=== PATIENT | female | born 1940 | race Hispanic/Latino ===

== ENCOUNTER 2016-11-21 20:26 | Inpatient (IN) | payer OTHER ==
[2016-11-21] MEDS ORDERED: LASIX IV ONE (21:54)
--- NOTE | 2016-11-21 21:55 | PROVIDER DOCUMENTATION ---
HPI-Abdominal Pain/GI Problem - General Source: family - History of Present Illness-ABD Nature of Presenting Problems: 76 y/o women presents to the ED with nausea and vomiting for 3 days. Pt speaks no Belarusian but son states she has been treated for Bronchitis and does not take her medicine. Abdominal Pain Onset Location: reports: generalized abdomen Pain Radiation: reports: no radiation Quality of Pain: reports: cramping Severity in ED: reports: mild Onset/Duration: reports: 3 days ago Timing: reports: still present Exposure to sick contacts?: Yes Associated Symptoms: reports: cough, nausea, vomiting. denies: fever/chills <Nayan Castro - Last Filed: 11/21/16 23:41> <Eduardo Callejas - Last Filed: 11/21/16 23:47> - General Chief Complaint: Nausea/Vomiting Stated Complaint: VOMITING Time Seen by Provider: 11/21/16 21:40 Allergies/Adverse Reactions: Patient Allergies Allergy/AdvReac Type Severity Reaction Status Date / Time No Known Allergies Allergy Verified 11/21/16 21:20 Home Medications: Home Medication List Medication Instructions Recorded Confirmed Last Taken Type Insulin Glargine [Lantus] 0 unit SUBQ QHS 08/27/13 11/21/16 05/21/15 21:00 History Hydrocodone Bit/Acetaminophen 1 each PO Q8H PRN PRN 05/22/15 11/21/16 05/22/15 09:00 History [Hydrocodon-Acetaminophen 5-325] Nebivolol HCl [Bystolic] 10 mg PO DAILY 05/22/15 11/21/16 11/21/16 History Oxymetazoline Nasal [place] [Afrin 2 spray SONAM PRN PRN #1 bottle 02/25/16 Unknown Rx Nasal [place]] Furosemide [Lasix] 20 mg PO DAILY 11/21/16 11/21/16 11/21/16 History Gabapentin [Neurontin] 100 mg PO TID PRN 11/21/16 11/21/16 Unknown History Potassium Chloride 10 meq PO DAILY 11/21/16 11/21/16 11/21/16 History Review of Systems - Adult - REVIEW OF SYSTEMS - ADULT ROS:: ROS per family Constitutional: denies: chills, fever Eyes: reports: no symptoms reported Ears, Nose, Mouth & Throat: reports: no symptoms reported Cardiovascular: denies: chest pain, edema Respiratory: reports: cough. denies: shortness of breath, wheezing Gastrointestinal: reports: abdominal pain, nausea, vomiting Genitourinary: reports: no symptoms reported Musculoskeletal: reports: no symptoms reported Integumentary: reports: no symptoms reported Neurological: reports: no symptoms reported Psychiatric: reports: no symptoms reported Endocrine: reports: no symptoms reported Hematologic/Lymphatic: reports: no symptoms reported Allergic/Immunologic: reports: no symptoms reported All Other Systems: Reviewed and Negative <Nayan Castro - Last Filed: 11/21/16 23:41> Past History - Adult - PAST MEDICAL HISTORY-ADULT Review of Records: reports: Old Records Reviewed, Nursing Assessment Review, Medications Reviewed Cardiovascular: reports: CAD (CABG), CHF, HTN, hyperlipidemia Respiratory: reports: COPD Endocrine/Immune: reports: Diabetes - PRIOR SURGERIES/PROCEDURES Surgical/Procedure History: reports: CABG, joint replacement (right knee replacement ), other (open heart sugery) - IMMUNIZATION STATUS Childhood Immunizations: See Nurse Assessment Flu Vaccine: See Nurse Assessment - SOCIAL HISTORY Smoking: non-smoker Substance Use: none/never Living Situation: family <Nayan Castro - Last Filed: 11/21/16 23:41> Physical Exam-General - PHYSICAL EXAM-ADULT Initial Vital Signs Reviewed: Yes - CONSTITUTIONAL General Appearance: appears well, alert, no apparent distress - EYES Eyes: PERRL/EOMI, pink conjunctivae - HEAD, EARS, NOSE, MOUTH & THROAT HENMT: moist mucous membranes, normal ENT inspection, TMs normal, pharynx normal - NECK Neck: non-tender, full range of motion, supple, normal inspection - RESPIRATORY Respiratory: lungs clear, normal breath sounds (clear laterally), no respiratory distress, no accessory muscle use - CARDIOVASCULAR Cardiovascular: normal peripheral pulses, regular rate, rhythm - GASTROINTESTINAL (ABDOMEN) Abdominal Exam: normal bowel sounds, soft, tenderness (generalized) - MUSCULOSKELETAL Back Exam: normal inspection, no CVA tenderness, no vertebral tenderness Extremity: non-tender, pedal edema (2+). negative: normal inspection (Rigth amptuee bleow knee), deformity - SKIN Integumentary: normal color, normal turgor, warm/dry - NEUROLOGIC Neurologic: grossly normal, no motor/sensory deficits - PSYCHIATRIC Psych/Mental Status: normal mood/affect, normal thought content, normal thought process, oriented x 3 <Nayan Castro - Last Filed: 11/21/16 23:41> Progress - PLAN OF CARE/RESULTS Progress/Plan/Lab Results: Orders Category Date Time Status Saline Loc DIRECTED Care 11/21/16 20:43 Active NPO Diet 11/21/16 20:43 Active flat [FLAT/UPRIGHT ABD/1 VIEW CHEST] [RAD] Stat Exams 11/21/16 20:44 Taken AMYLASE [CHEM] Stat Lab 11/21/16 22:06 Completed BNP [PRO B-NATRIURETIC PEPTIDE] Stat Lab 11/21/16 22:00 Received CBC WITH ELECTRONIC DIFF [HEME] Stat Lab 11/21/16 22:06 Completed COMPREHENSIVE METABOLIC PANEL [CHEM] Stat Lab 11/21/16 22:06 Completed LIPASE [CHEM] Stat Lab 11/21/16 22:06 Completed URINE CULTURE [RM] Routine Lab 11/21/16 23:26 Received Furosemide [Lasix] Med 11/21/16 21:54 Discontinued 40 mg IV NOW ONE Vital Signs Temp Pulse Resp BP Pulse Ox 11/21/16 23:33 58 L 16 164/79 96 11/21/16 20:39 97.8 F 63 16 185/74 95 No Known Allergies Allergy (Verified 11/21/16 21:20) Insulin Glargine [Lantus] 0 unit SUBQ QHS 08/27/13 Hydrocodone Bit/Acetaminophen [Hydrocodon-Acetaminophen 5-325] 1 each PO Q8H PRN PRN 05/22/15 Nebivolol HCl [Bystolic] 10 mg PO DAILY 05/22/15 Oxymetazoline Nasal [place] [Afrin Nasal [place]] 2 spray SONAM PRN PRN #1 bottle Furosemide [Lasix] 20 mg PO DAILY 11/21/16 Gabapentin [Neurontin] 100 mg PO TID PRN 11/21/16 Potassium Chloride 10 meq PO DAILY 11/21/16 Dietary Diet NPO Start SatNov 21 2042 I&O 11/20/16 11/21/16 11/22/16 06:59 06:59 06:59 Output Total 50 Balance -50 Laboratory 11/21/16 11/21/16 11/21/16 22:45 22:06 22:06 WBC 4.96 RBC 5.83 H Hgb 17.3 H Hct 54.1 H MCV 92.8 MCH 29.7 MCHC 32.0 L RDW Std Deviation 18.7 H Plt Count 138 MPV 12.3 H Immature Gran % (Auto) 0.4 Neut % (Auto) 59.3 Lymph % (Auto) 23.6 [place] % (Auto) 12.5 H Eos % (Auto) 2.0 Baso % (Auto) 2.2 H Immature Gran # (Auto) 0.02 Neut # (Auto) 2.94 Lymph # (Auto) 1.17 L [place] # (Auto) 0.62 H Eos # (Auto) 0.10 Baso # (Auto) 0.11 Sodium 139 Potassium 5.9 H Chloride 105 Carbon Dioxide 18 L Anion Gap 16 BUN 55 H Creatinine 2.4 H Estimated GFR/1.73 m2 20 BUN/Creatinine Ratio 23 Glucose 174 H Calculated Osmolality 297 Calcium 9.1 Total Bilirubin 1.17 H AST 28 ALT 12 Alkaline Phosphatase 116 H Total Protein 6.8 Albumin 2.8 L Globulin 4.0 Albumin/Globulin Ratio 0.7 Amylase 73 Lipase 42 Urine Source CLEAN CATCH Urine Color YELLOW Urine Clarity CLEAR Urine Turbidity Cancelled Urine pH 5.5 Ur Specific [place] > 1.030 Urine Protein >=300 A Ur Glucose (Stick) Cancelled Urine Ketones NEGATIVE Ur Ketones (Stick) Cancelled Urine Blood LARGE A Urine Nitrite NEGATIVE Urine Bilirubin NEGATIVE Urine Urobilinogen 1.0 Urobilinogen Dipstick Cancelled Urine Leukocytes Cancelled Urine WBC (Auto) Cancelled Urine RBC (Auto) Cancelled U Epithel Cells (Auto) Cancelled Urine Bacteria (Auto) Cancelled Urine Microscopic RBC TNTC A Urine WBC NEGATIVE Urine Microscopic WBC TNTC A Ur Epithelial Cells <10 Urine Bacteria 3+ Urine Glucose 100 A - XRAY 1 XRAY Study: Chest, Abdomen Impression: Abnormal XRAY Interpretation: CHF and cardiomegal per Dr Callejas - CONSULTS/PCP/HOSPITALIST Notification #1 *Consult/PCP/Hospitalist*: Dr Montero (Hospitalist) Time Discussed: 23:41 Reason/Comments: Admission Consult Disposition: Will see in ED (accepts) <Nayan Castro - Last Filed: 11/21/16 23:41> Departure <Nayan Castro - Last Filed: 11/21/16 23:41> - Departure Time of Disposition Order: 23:45 Certified Medical Emergency: Emergent <Eduardo Callejas - Last Filed: 11/21/16 23:47> - Departure DIAGNOSIS: Congestive heart failure Diabetes Qualifiers: Diabetes mellitus type: type 2 Diabetes mellitus complication status: with kidney complications Disposition: ADMITTED INPATIENT 09 Condition: Fair Physician Attestation
[2016-11-21 22:17] LABS: MANUAL DIFF NEEDED? NO
[2016-11-21 22:23] LABS: BASO% 2.2 % (0.0-0.8); HEMATOCRIT 54.1 % (37.0-47.0); HEMOGLOBIN 17.3 g/dL (12.0-16.0); IMM GRAN# 0.02 X1000 (0.0-0.04); IMM GRAN% 0.4 % (0.0-0.5); LYMPH# 1.17 X1000 (1.2-3.4); LYMPH% 23.6 % (20.5-51.1); MCH 29.7 PG (27-31); MCV 92.8 FL (81-99); MONO# 0.62 X1000 (0.11-0.59); MONO% 12.5 % (1.7-9.3); MPV 12.3 FL (7.4-10.4); NEUT% 59.3 % (42.2-75.2); PLT 138 X1000 (130-400); RBC 5.83 XMIL (4.2-5.4)
[2016-11-21 22:52] LABS: ALBUMIN 2.8 g/dL (3.5-5.0); CALCIUM 9.1 mg/dL (8.8-10.2); POTASSIUM 5.9 mmol/L (3.5-5.1); TOTAL BILIRUBIN 1.17 mg/dL (0.20-1.00); TOTAL PROTEIN 6.8 g/dL (6.3-8.3)
[2016-11-21 23:10] LABS: URINE SOURCE CLEAN CATCH
[2016-11-21 23:14] LABS: URINE EPITHELIAL CELLS <10 /HPF (<10); URINE RBC TNTC /HPF (<10); URINE WBC TNTC /HPF (<10)
[2016-11-21 23:26] LABS: BILIRUBIN URINE NEGATIVE (NEGATIVE); BLOOD URINE LARGE (NEGATIVE); CLARITY CLEAR (CLEAR); COLOR YELLOW; GLUCOSE URINE 100 mg/dL (NEGATIVE); LEUKOCYTES URINE NEGATIVE (NEGATIVE); NITRITE URINE NEGATIVE (NEGATIVE); PH URINE 5.5; PROTEIN URINE >=300 mg/dL (NEGATIVE); SP GRAVITY URINE > 1.030; URINE CULTURE NEEDED? YES
[2016-11-22] MEDS ORDERED: LASIX IV SCH (01:08)
[2016-11-22] MEDS ORDERED: TYLENOL PO PRN (01:08)
[2016-11-22] MEDS ORDERED: HUMALOG SUBQ ONE (01:08)
[2016-11-22] MEDS ORDERED: NEURONTIN PO PRN (01:08)
[2016-11-22] MEDS ORDERED: ZOFRAN IV PRN (01:08)
[2016-11-22] MEDS ORDERED: NORCO-5 PO PRN (01:08)
[2016-11-22] MEDS: ROCEPHIN 1 GM/NS 50 ML IV SCH (02:04)
[2016-11-22] MEDS: LOVENOX SUBQ SCH (06:26)
[2016-11-22 07:15] LABS: HDL 28 mg/dL (45-65); LDL 159 mg/dL; TRIGLYCERIDES 93 mg/dL (35-135); VLDL 19 mg/dL
[2016-11-22 07:16] LABS: HEMOGLOBIN A1C 7.3 % (4.8-6.0)
--- NOTE | 2016-11-22 07:18 | HISTORY AND PHYSICAL ---
PRIMARY CARE PHYSICIAN: Anders Perez MD REASON FOR ADMISSION: Shortness of breath for 3 days. HISTORY OF PRESENT ILLNESS: Ms. Roma Alvarez is a 75-year-old lady with past medical history of congestive systolic heart failure ejection fraction of 25% to 30%. Last 1 done in May of last year. She also has a past medical history of type 2 diabetes, diabetic neuropathy, hypertension. She reports that 3 weeks ago, she saw her family, Dr. Perez, with what was described as bronchitis and given some cough medication. She has had a persistent cough which has been dry. She admits to having over the last 1 week, a left lower extremity swelling but no orthopnea and PND. She states that she also denies any chest pain, or any anginal-type symptoms. She came in today primarily because her cough was getting worse and her exercise tolerance had diminished significantly over the last 2 days. No fever, no chills. She does have occasional pleuritic abdominal and chest pains with a declining urinary output and no GI complaints. No palpitations or lightheadedness. REVIEW OF SYSTEMS: No polyuria or polydipsia. No additional complaints. Twelve system review is negative. Positive findings per HPI. ALLERGIES: None. HOME MEDICATIONS: Lantus, dose to be determined; [place] 1 tablet 7.5 q.8 hours; Bystolic 10 mg daily; Neurontin 100 mg daily; Lasix 20 mg daily; potassium 10 mEq daily; Afrin nasal spray 2 puffs p.r.n. She was given some cough medication but this was not on her list. PAST SURGICAL HISTORY: Surgical repair to her heart. 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 PAST MEDICAL HISTORY INCLUDES: Coronary artery disease and the other history stated as above. SOCIAL HISTORY: Does not smoke, drink, or use drugs. Lives with her daughter. FAMILY HISTORY: Notable for type 2 diabetes. No heart disease. No cancer. LABORATORY WORK/DIAGNOSTIC DATA: EKG is pending. Chest x-ray showed increased vascular markings bilaterally. White count 4000, hemoglobin 17 and hematocrit 54, platelets 138,000, with a normal differential. Her potassium 5.9, bicarbonate 18, anion gap 16, BUN 55, creatinine 2.4. Her baseline usually runs about that. Glucose 174, proBNP greater than 35,000, albumin 2.5. Urinalysis shows greater than 300 protein, large blood, too numerous to count RBCs, no numerous to count WBCs, 2+ bacteria. PHYSICAL EXAMINATION: GENERAL: Pleasant, elderly, woman who speaks very little Bengali. Most of the history obtained from her daughter at bedside. She is alert and oriented to person, place, and time with normal mood and affect. VITAL SIGNS: Blood pressure is 164/79, pulse rate 60, respirations is 16, temperature is 97.8 degrees. 96% on room air. HEENT: Head is normocephalic, atraumatic. Eyes, PERRL, EOMI. Sclerae anicteric and not pale. ENT and oropharynx is grossly normal. No central cyanosis. NECK: Shows notable JVD with positive hepatojugular reflux. No bruit or thyromegaly visualized. CHEST: Few bibasilar crepitations in the bases with minimal decreased air entry in both lung beck. No wheezes. CARDIOVASCULAR: No first or second sounds heard. No gallops, murmurs or rubs. Rhythm is regular. ABDOMEN: Full, soft, with mild epigastric tenderness. No mass or organomegaly. Bowel sounds normal. RECTAL: Deferred at this time. EXTREMITIES: The patient has 1 to 2+ pitting edema on the left leg up to the knee. 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 Pulses distally in the left lower extremity are palpable. The volume is somewhat small, however. No clubbing or peripheral cyanosis otherwise. NEUROLOGIC: No focal deficits. SKIN: Intact with no breakdown lesions or erythema. MUSCULAR: Exam is grossly normal. ASSESSMENT: 1. Acute systolic heart failure exacerbation. 2. Hypertension with chronic heart disease. 3. Chronic kidney disease, stage 3. 4. Urinary tract infection. 5. Diabetic nephropathy. 6. Coronary artery disease. 7. Aortic regurgitation. 8. Hyperkalemia secondary to chronic kidney disease, cannot rule out type 4 renal tubular acidosis. PLAN: At this time, we will start the patient on diuretics. We will start the patient on a very low-dose ARB for patient's nephrotic range proteinuria and CHF and monitor her creatinine to ensure that it does not worsen. Start patient on breathing treatments. Also, I will monitor the patient's output and input. Daily BMP and may consider repeating another echo to document further stability or progress or deterioration of patient's cardiac status. was started for 3 days for urinary tract infection. Cultures need to be followed. Chest film also needs to be followed to document objective improvement of patient's CHF. Other measures include DVT prophylaxis with Lovenox. I recommend following up with A1c and lipid panel and consider starting statin and aspirin in view of the patient's history of CAD. MTDD
--- NOTE | 2016-11-22 07:49 | Diag Imaging Result Document ---
PROCEDURE NAME: FLAT/UPRIGHT ABD/1 VIEW CHEST - 11/21/2016 FLAT AND UPRIGHT ABDOMEN: FINDINGS: There is stool present throughout the colon including the rectum. The small bowel and stomach are not distended. There is no evidence of organomegaly or mass. IMPRESSION: Constipation. AP CHEST: FINDINGS: There is cardiomegaly and there has been previous sternotomy. There is a right pleural effusion which was not present on 06/12/2016, and there is mild interstitial pulmonary edema present particularly over the right lower lobe. IMPRESSION: Right pleural effusion and pulmonary edema.
[2016-11-22] MEDS: DUONEB (A & A) INH SCH ×3 (08:53→21:10)
[2016-11-22] MEDS ORDERED: KLOR-CON PO SCH (09:00)
[2016-11-22] MEDS: COZAAR PO SCH (11:32)
[2016-11-22] MEDS: BYSTOLIC PO SCH (11:32)
[2016-11-22] MEDS: OCUFLOX 0.3% OPH SOLUTION BOTH EYES SCH ×3 (14:22→21:46)
[2016-11-22] MEDS ORDERED: D50W SYRINGE ONE (16:46)
[2016-11-22] MEDS ORDERED: D50W SYRINGE IV ONE (16:58)
[2016-11-22] MEDS ORDERED: D5 NS 1,000 ML IV SCH (17:00)
[2016-11-23] MEDS: OCUFLOX 0.3% OPH SOLUTION BOTH EYES SCH ×6 (01:59→20:18)
[2016-11-23] MEDS: ROCEPHIN 1 GM/NS 50 ML IV SCH (02:00)
[2016-11-23] MEDS: LOVENOX SUBQ SCH (05:50)
[2016-11-23 06:31] LABS: MANUAL DIFF NEEDED? NO
[2016-11-23 06:48] LABS: BASO% 0.4 % (0.0-0.8); EOS# 0.25 X1000 (0.0-0.7); EOS% 4.4 % (0.0-10.0); HEMATOCRIT 48.1 % (37.0-47.0); HEMOGLOBIN 15.3 g/dL (12.0-16.0); LYMPH# 1.01 X1000 (1.2-3.4); LYMPH% 17.9 % (20.5-51.1); MCH 29.7 PG (27-31); MCHC 31.8 g/dL (33-37); MCV 93.4 FL (81-99); MONO# 0.74 X1000 (0.11-0.59); MONO% 13.1 % (1.7-9.3); MPV 12.2 FL (7.4-10.4); NEUT% 64.2 % (42.2-75.2); PLT 143 X1000 (130-400); RBC 5.15 XMIL (4.2-5.4)
[2016-11-23 06:57] LABS: CALCIUM 8.4 mg/dL (8.8-10.2); POTASSIUM 5.2 mmol/L (3.5-5.1)
[2016-11-23] MEDS: DUONEB (A & A) INH SCH ×3 (08:09→19:04)
--- NOTE | 2016-11-23 08:33 | Diag Imaging Result Document ---
PROCEDURE NAME: CHEST-2 VIEWS - 11/22/2016 SEATED AP AND LATERAL RADIOGRAPH OF THE CHEST: COMPARISON: 11/21/2016. FINDINGS: Lung volumes are very low. Interstitial edema appears to have worsened, and there is worsening pulmonary venous congestion. There is suggestion of at least a right pleural effusion that is probably larger than the previous study. There is probably an effusion on the left as well. Cardiac silhouette is stable. IMPRESSION: Worsening infiltrates bilaterally most compatible with pulmonary edema plus or minus pneumonia.
[2016-11-23] MEDS ORDERED: LASIX IV SCH (09:00)
--- NOTE | 2016-11-23 09:19 | EKG Report ---
Test Performed on : 11/23/2016 08:04:45 AM Test Reason : bradycardia Blood Pressure : / mmHG Vent. Rate : 061 BPM Atrial Rate : 061 BPM P-R Int : 178 ms QRS Dur : 110 ms QT Int : 462 ms P-R-T Axes : 023 -40 -09 degrees QTc Int : 465 ms Normal sinus rhythm. Left axis deviation Incomplete right bundle branch block Inferior infarct , age undetermined Cannot rule out Anterior infarct (cited on or before 30-APR-2015) T wave abnormality, consider lateral ischemia Abnormal ECG When compared with ECG of 22-MAY-2015 17:34, T wave inversion more evident in Lateral leads Confirmed by River Pittman MD ([id number]) on 11/23/2016 9:05:05 PM
--- NOTE | 2016-11-23 11:25 | CONSULTATION ---
DATE OF CONSULTATION: 11/23/2016 Ms. Alvarez is a lady. History was obtained from the chart. Dr. Benton helped to translate. She has been having some lower leg pain and also had some cough which has been dry. She denies chest pain. She came to the emergency room as she was feeling weak with a left lower extremity swelling but without any orthopnea or paroxysmal nocturnal dyspnea. REVIEW OF SYSTEMS: GI System: There is no hematemesis or melena. Central nervous system: No focal weakness to suggest a CVA or TIA. Genitourinary System: There is no dysuria or hematuria. PAST MEDICAL HISTORY: 1. Coronary artery disease, status post coronary artery bypass grafting, 2009, SOLIS to left anterior descending artery, SVG to diagonal, SVG to OM, SVG to posterolateral branches. 2. Congestive heart failure. Last V/Q scan 03/21/2015 no pulmonary embolism. 3. Systolic heart failure. 4. History of pleural effusion in the past. Drained 1 L in 03/12/2010. 5. COPD. 6. Hypertension. 7. Diabetes. 8. Carotid disease. HOME MEDICATIONS: Include Lantus, [place], Bystolic 10, Neurontin 100, Lasix 20, potassium supplements, Afrin spray. She has been started on ceftriaxone and Lasix IV in the hospital. ALLERGIES: She is not known to be allergic to any medications. She does not smoke. Blood pressure 170/66. CARDIOVASCULAR SYSTEM: Normal jugular venous pressure. First and second heart sounds were heard. There was soft systolic murmur. Respiratory System: Bibasilar scattered inspiratory crepitations. Abdomen: Soft, nontender. Extremities: Examination of extremities: Pedal edema. Chest x-ray revealed bilateral infiltrates compatible with pulmonary edema. OTHER LABORATORY EXAMINATION: Revealed hemoglobin 15.3, hematocrit 48, platelet count of 143,000. Sodium 141, potassium 5.2, BUN 59, creatinine 2.6. Troponin 0.10, proBNP greater than 35,000. ASSESSMENT AND PLAN: Ms. Roma Alvarez is a 76-year-old lady with history of coronary artery disease, status post coronary artery bypass grafting, systolic heart failure, history of pleural effusion in the past, hypertension, diabetes is admitted with atypical symptoms. Denies chest pain. She has noticed swelling in the lower extremities and pain and she is in heart failure. She has been started on Lasix. Would recommend continuing Lasix. We will get an echocardiogram to assess cardiac and valvular function. She had left ventricular systolic function of 25% in the past. She has renal insufficiency. Will also consult Nephrology to help with her renal function issues as with diuresis renal function may worsen Once euvolemic will assess for ischemia. She also has been started on ceftriaxone as she had some cough however white counts were normal. Would recommend continuing the medications. Thank you for the consult. JESSEE
[2016-11-23] MEDS: BYSTOLIC PO SCH (11:44)
[2016-11-23] MEDS: COZAAR PO SCH (11:44)
--- NOTE | 2016-11-23 13:26 | CONSULTATION ---
DATE OF CONSULTATION: 11/23/2016 REASON FOR CONSULTATION: Chronic kidney disease. HISTORY OF PRESENT ILLNESS: Ms. Alvarez is a 76-year-old woman with coronary artery disease, peripheral vascular disease, hypertension, diabetes, history of DKA, chronic kidney disease. Baseline creatinine has been approximately 2 to 2.5 in the old record. She was admitted to the hospital with shortness of breath and has been treated for symptomatic heart failure. She has had some improvement in her symptoms but they do persist. In this context, she was evaluated by Cardiology who asked us to participate in her care. PAST MEDICAL HISTORY: 1. Diabetes. 2. Hypertension. 3. Coronary disease. 4. Peripheral vascular disease. 5. Chronic kidney disease. Baseline creatinine 2-2.5. 6. Peripheral neuropathy. HOME MEDICATIONS: Insulin, hydrocodone, nebivolol, Afrin, potassium chloride, gabapentin, furosemide. ALLERGIES: None. SOCIAL HISTORY: She does not speak Moldovan. No alcohol or tobacco. She lives with her daughter. FAMILY HISTORY: Positive for diabetes. PHYSICAL EXAMINATION: Vital Signs: Blood pressure 161/71, heart rate 64, respirations 20, afebrile. General: She is an elderly woman, lying at 30 degrees in no distress. Skin: Warm and dry. HEENT: Conjunctivae are pink. Pupils are equal. Oropharynx is clear. Tongue is moist. Neck: Supple. Trachea is midline. Jugular venous distention is present. Heart: PMI is displaced. Regular rate and rhythm with a gallop and a murmur. Lungs: Have equal breath sounds. No crackles or wheezes. Abdomen: Soft, nontender. Bowel sounds are present. No organomegaly. Extremities: Have 2+ edema. No clubbing or cyanosis. Right BKA. LABORATORY DATA: Sodium 141, potassium 5.2, chloride 104, bicarbonate 25, BUN 59, creatinine 2.6. IMPRESSION: Chronic kidney disease stage 3B to 4. This is not significantly different from her baseline. I have reviewed her current medications and no changes are required regarding the kidney function. We will quantify her kidney function with a 24 hour urine collection and have her undergo a kidney ultrasound. Thank you for the consult.
--- NOTE | 2016-11-23 15:54 | PROGRESS NOTE ---
DATE: 11/23/2016 SUBJECTIVE: This patient states that she is feeling better. She is not complaining of chest pain or shortness of breath, she is not complaining of burning sensation with the urine, she basically came in complaining with nausea and vomiting apparently related with some medication that she was taking at home for pain. Cardiology and Nephrology Department have evaluated this patient; we will follow their recommendations. OBJECTIVE: Vital Signs: Temperature 98.0 degrees, pulse 64, respiratory rate 20, blood pressure 161/71, oxygen saturation 100% on 2 L of nasal cannula. HEENT: Head normocephalic. No trauma. PERRLA. Neck: Supple. Mild JVD. No masses. Central trachea. Chest: Bilateral rales at the bases. Cardiovascular: RRR. No murmurs. No gallops. No rubs. Abdomen: Soft. Mild tenderness to palpation in the epigastric area. Nondistended. Obese. Extremities: This patient has a right BKA stump which is clean, and she has 1 pitting edema on the left lower extremity. Neurological examination: No focal deficits. LABORATORY: WBC 5.6, hemoglobin 15.3, hematocrit 48.1, platelets 143. Sodium 141, potassium 5.2, chloride 104, bicarbonate 25, BUN 59, creatinine 2.6, glucose 155, calcium 8.4. ASSESSMENT AND PLAN: 1. Nausea and vomiting, this is getting better. This patient is not complaining at this moment of nausea and vomiting. She is tolerating oral. 2. Acute systolic heart failure exacerbation. Cardiology Department is on board. This patient has been placed on Lasix twice a day intravenous, we will continue to monitor the urine output and kidney function. 3. Chronic kidney disease, stage III. The creatinine is around her baseline. We will continue to monitor. Nephrology Department is on board. 4. Urinary tract infection. We have a positive culture that showed gram positive cocci. I will wait for final results. This patient is not complaining of any urinary symptoms. 5. Diabetic nephropathy. This is chronic and stable. Nephrology Department is on board. 6. History of coronary artery disease. Aware. 7. Aortic regurgitation, aware. 8. Hyperkalemia likely secondary to chronic kidney disease. The potassium is a little bit better. We will continue to monitor. Probably with the furosemide, the potassium is going to decrease.
--- NOTE | 2016-11-23 16:38 | ECHO REPORT ---
ORDER DATE: 11/23/2016 INTERPRETING PHYSICIAN: Dr. Sanchez CLINICAL INDICATIONS: [id number]-old female, renal failure, hypertension , heart disease. M-MODE MEASUREMENTS: Right ventricle: 4.2 cm. Left ventricle end diastole: 5.5 cm. Left ventricle end systole: 4.4 cm. Posterior wall: 1.1 cm. Interventricular septum: 1.1 cm. Left atrium: 4.4 cm. Aortic root: 3.0 cm. SUMMARY OF 2-DIMENSIONAL IMAGING: Left ventricular chamber is moderately dilated. The left ventricular systolic function appears to be moderately impaired. Global ejection fraction is estimated at 40 to 45%. There is a mild degree of concentric left ventricular hypertrophy. The left atrium is significantly enlarged. The right ventricle is also significantly dilated. Right atrium is markedly dilated. The aortic valve shows a sclerosis of the cusp. Color flow mapping indicates mild degree of aortic regurgitation. There is no stenosis. Mitral anulus shows moderate calcification. Color flow mapping shows mild degree of regurgitation. Pulse wave Doppler of mitral inflow shows a pseudo-normal pattern with a tall E wave, short A wave. Tissue Doppler of septal and lateral mitral anulus averages 2 cm. There is impaired left ventricular relaxation with elevation of left atrial pressure. The pulmonic valve shows mild to moderate degree of regurgitation. Tricuspid valve shows moderate degree of regurgitation. Inferior vena cava is enlarged. Pulmonary pressure estimated at 69 mmHg. There is no pericardial effusion, masses, nor thrombus. SUMMARY: This study shows: 1. Moderately enlarged left ventricle with moderately impaired function, ejection fraction 40 to 45%, with some wall motion abnormality at the level of the posterolateral wall of the left ventricle. 2. Mild degree of mitral regurgitation. 3. Moderate degree of tricuspid regurgitation with a pulmonary pressure of 69 mmHg. There is diastolic dysfunction with elevated left atrial pressure. Clinical correlation recommended. [facility]
--- NOTE | 2016-11-23 18:41 | Diag Imaging Result Document ---
PROCEDURE NAME: US RENAL 2 (RETROPER) COMPLETE - 11/23/2016 RENAL ULTRASOUND: FINDINGS: There is no evidence of hydronephrosis. The right kidney is 9.4 x 3.2 x 3 cm the left is 10.1 x 3.8 x 4.4 cm. Both kidneys are somewhat atrophic in appearance with increased echogenicity which may indicate medical renal disease. There is some lobulation as well. This appearance was also present on 03/22/2015 although the left kidney appears somewhat smaller than it did previously. IMPRESSION: Probable medical renal disease. No evidence of obstructive uropathy.
[2016-11-23] MEDS: LASIX IV SCH (20:18)
[2016-11-24] MEDS: ROCEPHIN 1 GM/NS 50 ML IV SCH (00:43)
[2016-11-24] MEDS: OCUFLOX 0.3% OPH SOLUTION BOTH EYES SCH ×6 (00:43→21:50)
[2016-11-24 02:01] LABS: URINE MICRO REVIEW NEEDED? NO; URINE SOURCE CATH
[2016-11-24 02:06] LABS: BILIRUBIN URINE NEGATIVE (NEGATIVE); BLOOD URINE MODERATE (NEGATIVE); COLOR YELLOW; GLUCOSE URINE 150 mg/dL (NEGATIVE); LEUKOCYTES URINE LARGE (NEGATIVE); NITRITE URINE NEGATIVE (NEGATIVE); PH URINE 5.5; PROTEIN URINE 100 mg/dL (NEGATIVE); SP GRAVITY URINE 1.008; TURBIDITY URINE HAZY (CLEAR); UROBILINOGEN URINE NORMAL (NORMAL)
[2016-11-24 02:07] LABS: UR EPITHELIAL CELLS <10 /HPF (<10); URINE BACTERIA 1+ /HPF; URINE CULTURE NEEDED? YES; URINE WBC TNTC /HPF (<10)
[2016-11-24] MEDS: LOVENOX SUBQ SCH (06:18)
[2016-11-24 06:51] LABS: MANUAL DIFF NEEDED? NO
[2016-11-24 07:13] LABS: BASO% 0.5 % (0.0-0.8); EOS# 0.31 X1000 (0.0-0.7); EOS% 4.7 % (0.0-10.0); HEMATOCRIT 45.5 % (37.0-47.0); HEMOGLOBIN 14.5 g/dL (12.0-16.0); LYMPH# 1.26 X1000 (1.2-3.4); LYMPH% 19.2 % (20.5-51.1); MCH 29.7 PG (27-31); MCHC 31.9 g/dL (33-37); MCV 93.2 FL (81-99); MONO# 0.67 X1000 (0.11-0.59); MONO% 10.2 % (1.7-9.3); MPV 12.1 FL (7.4-10.4); NEUT% 65.4 % (42.2-75.2); PLT 141 X1000 (130-400); RBC 4.88 XMIL (4.2-5.4)
[2016-11-24 07:35] LABS: CALCIUM 8.2 mg/dL (8.8-10.2); POTASSIUM 4.5 mmol/L (3.5-5.1)
[2016-11-24] MEDS: DUONEB (A & A) INH SCH ×3 (07:42→19:16)
[2016-11-24] MEDS: BYSTOLIC PO SCH (09:28)
[2016-11-24] MEDS: COZAAR PO SCH (09:28)
[2016-11-24] MEDS: LASIX IV SCH ×2 (09:28→22:50)
--- NOTE | 2016-11-24 13:18 | PROGRESS NOTE ---
DATE: 11/24/2016 SUBJECTIVE: Ms. Alvarez has no complaints of pain and breathing seems to be doing well. Communication is somewhat limited secondary to her non Pakistani-speaking status. PHYSICAL EXAMINATION: She is afebrile. Heart rate 70s to 80s. Blood pressure 178/85. Her I's and O's are somewhat difficult to estimate secondary to a number of incontinent voids noted. General: She is in no acute distress. Cardiovascular: She is in a regular rate and rhythm. She has no obvious murmurs. Extremities: She does have 1+ lower extremity edema in the left lower extremity. She has a right- sided BKA. Her JVP does appear to be significantly elevated. Chest: Clear bilaterally. No increased work of breathing. Abdomen: Soft, nontender, nondistended. No obvious organomegaly. PERTINENT DATA: White count 6.5, hematocrit is 45.5, platelet count 141,000. Sodium 139, potassium 4.5. BUN 57, creatinine 2.8 and that is up from 55 and 2.4 on admission. Her GFR was 20 on presentation at 16 presently. ASSESSMENT: 1. Acute systolic heart failure. 2. Renal insufficiency. PLAN: I will add in hydralazine 25 t.i.d. If her pressure tolerates this we will likely add in ISDN. The primary team initiated the patient on losartan at presentation. If her renal function continues to worsen we will likely need to discontinue this medication. Nephrology is currently following.
--- NOTE | 2016-11-24 14:27 | PROGRESS NOTE ---
DATE: 11/24/2016 SUBJECTIVE: This patient states that she is feeling a little bit better. She is complaining today about nausea, no vomiting. She denies shortness of breath or chest pain. She is not complaining of any hearing problems. We placed a catheter yesterday to be able to quantify and keep the urine for 24 hours. She was not following commands and keeping the urine with us. OBJECTIVE: Vital Signs: Temperature 98 degrees, pulse 79, respiratory rate 18, blood pressure 178/85, oxygen saturation of 100% on nasal cannula. HEENT: Head normocephalic. No trauma. PERRLA. Neck: Supple. No JVD. No masses. Central trachea. Chest: Bilateral rales at the bases. Cardiovascular: RRR. No murmurs. No gallops. Abdomen: Soft. Mild tenderness to palpation in the epigastric area, it is nondistended, obese. Extremities: This patient has a right BKA stump which is clean, and she has trace edema on the left lower extremity. Neurological: No focal deficits. LABORATORY: WBC 6.5, hemoglobin 14.5, hematocrit 45.5, platelet 141,000. Sodium 139, potassium 4.5, chloride 101, bicarbonate 25, BUN 57, creatinine 2.8, glucose 155, calcium 9.2. ASSESSMENT AND PLAN: 1. Nausea and vomiting, she is complaining about nausea today but she has been tolerating a little bit p.o., she states that certain kind of food can trigger her nausea. 2. Acute systolic heart failure exacerbation. Cardiology Department is on board. This patient has been placed on Lasix twice a day IV, I will continue to monitor the urine output and kidney function. 3. Chronic kidney disease stage 3. The creatinine is around her baseline. We will continue to collect the urine for 24 hours after Nephrology recommendations. 4. Urinary tract infection. We have a positive culture that showed gram-positive cocci. I will wait for final results. This patient is not complaining of urinary symptoms, the culture showed Streptococcus agalactiae group B that is sensitive to levofloxacin, ampicillin, vancomycin, and penicillin G. This patient has been on ceftriaxone, I will switch it to levofloxacin. 5. Diabetic nephropathy. This is chronic and stable. Nephrology Department is on board. 6. History of coronary artery disease. Aware. Cardiology Department is on board. 7. History of aortic regurgitation. Aware. She already had a new cardiac ultrasound. 8. Hyperkalemia likely secondary to chronic kidney disease. The potassium is normal today. We will continue to monitor, she will continue with furosemide.
[2016-11-24] MEDS: HUMULIN R SUBQ SCH (21:45)
[2016-11-25] MEDS: OCUFLOX 0.3% OPH SOLUTION BOTH EYES SCH ×6 (00:47→20:12)
[2016-11-25 04:33] LABS: UR CREATININE 27.3 mg/dL (11-20); UR CREATININE TOTAL 668.9 mg/24 (600-1600); UR PROTEIN 197.4 mg/dL
[2016-11-25] MEDS: LOVENOX SUBQ SCH (05:58)
[2016-11-25 06:42] LABS: MANUAL DIFF NEEDED? NO
[2016-11-25 06:48] LABS: BASO% 0.4 % (0.0-0.8); EOS# 0.22 X1000 (0.0-0.7); HEMOGLOBIN 14.4 g/dL (12.0-16.0); LYMPH# 1.26 X1000 (1.2-3.4); LYMPH% 22.8 % (20.5-51.1); MCH 29.6 PG (27-31); MCV 92.6 FL (81-99); MONO# 0.61 X1000 (0.11-0.59); MPV 11.8 FL (7.4-10.4); NEUT% 61.8 % (42.2-75.2); PLT 135 X1000 (130-400); RBC 4.86 XMIL (4.2-5.4)
[2016-11-25 07:14] LABS: CALCIUM 8.4 mg/dL (8.8-10.2); MAGNESIUM 1.8 mg/dL (1.5-2.7); POTASSIUM 4.1 mmol/L (3.5-5.1)
[2016-11-25] MEDS: DUONEB (A & A) INH SCH ×3 (08:22→19:14)
[2016-11-25] MEDS: LASIX IV SCH ×2 (09:20→20:12)
[2016-11-25] MEDS: BYSTOLIC PO SCH (10:15)
[2016-11-25] MEDS: APRESOLINE PO SCH ×3 (10:15→17:30)
[2016-11-25] MEDS: COZAAR PO SCH (10:15)
[2016-11-25] MEDS: LEVAQUIN 500 MG/D5W 100 ML IV SCH ×2 (10:15→13:31)
[2016-11-25] MEDS: HUMULIN R SUBQ SCH ×2 (13:32→19:29)
--- NOTE | 2016-11-25 13:51 | PROGRESS NOTE ---
DATE: 11/25/2016 SUBJECTIVE: Ms. Alvarez has no complaints of any pain. PHYSICAL EXAMINATION: Vital Signs: She is afebrile. Heart rate is 64 blood pressure 169/74. General: In no acute distress. Cardiovascular: She is in a regular rate and rhythm. She has no obvious murmurs. No S3. She has 1+ lower extremity edema. She has significant jugular venous distention. Chest Examination: Clear bilaterally. No increased work of breathing. Abdomen: Soft, nontender, nondistended. No obvious organomegaly. Skin Exam: Warm and dry throughout. PERTINENT DATA: White count 5.5. Her hematocrit is 45, platelet count is 135, 000. Sodium 135, potassium 4.1, BUN 55, creatinine 2.7, which is roughly stable from yesterday. Her magnesium level is 1.8. Her 24 hour urine yesterday demonstrated 4.8 grams of protein over 24 hours with a creatinine clearance of 17. ASSESSMENT: 1. Congestive heart failure. 2. Renal insufficiency. PLAN: I will continue to adjust her medications. I will add in ISDN at 10 mg t.i.d. We will continue diuresis, as she continues to seem to have a significant amount of fluid overload present. MTDD
[2016-11-25] MEDS: ISORDIL PO SCH (16:50)
--- NOTE | 2016-11-25 17:02 | PROGRESS NOTE ---
DATE: 11/25/2016 SUBJECTIVE: This patient states that she is feeling better. She is not complaining of nausea or vomiting today. She is not complaining of shortness of breath. No chest pain. OBJECTIVE: Vital Signs: Temperature 98.3 degrees, pulse 64, respiratory rate 20, blood pressure 169/74, oxygen saturation 95% on 2 L of nasal cannula. HEENT: Head normocephalic. No trauma. PERRLA. Neck: Supple. Positive JVD. Central trachea. Chest: Clear to auscultation. No wheezing. Mild rales at the bases. Abdomen: Soft, nontender, nondistended. No hepatosplenomegaly. Extremities: She has a right BKA. Left lower extremity trace edema. No clubbing. No cyanosis. Neurological: The patient is alert and oriented x3. No focal neurological deficits. LABORATORY: WBC 5.5, hemoglobin 14.4, hematocrit 45, platelet 135,000. Sodium 135, potassium 4.1, chloride 98, bicarbonate 26, BUN 55, creatinine 2.7, glucose 228, calcium 8.4. ASSESSMENT AND PLAN: 1. Acute systolic heart failure exacerbation. Cardiology Department is on board. Today Isordil was added to her medications. Will continue to monitor. This patient is improving. 2. Nausea and vomiting resolved. 3. Chronic kidney disease stage 3. Will continue to monitor the creatinine. Nephrology department is on board. 4. Urinary tract infection. Will continue with the same treatment for now. She is on levofloxacin at this moment and the urine culture showed Streptococcus agalactiae. I repeated the urine culture and so far has been negative. 5. Type 2 diabetes. The glucose is a little bit elevated today but previously has been controlled, will continue with sliding scale for now. 6. Diabetic nephropathy. This is chronic and stable. Nephrology Department is on board. 7. History of coronary artery disease. Aware. Cardiology Department is on board. 8. History of aortic regurgitation. Aware. 9. History of coronary artery disease. Aware. Cardiology Department is following this patient. MTDD
[2016-11-26] MEDS: OCUFLOX 0.3% OPH SOLUTION BOTH EYES SCH ×6 (01:17→21:49)
[2016-11-26] MEDS: LOVENOX SUBQ SCH (05:15)
[2016-11-26 05:52] LABS: MANUAL DIFF NEEDED? NO
[2016-11-26 05:53] LABS: BASO% 0.5 % (0.0-0.8); EOS# 0.29 X1000 (0.0-0.7); EOS% 4.7 % (0.0-10.0); HEMATOCRIT 44.5 % (37.0-47.0); HEMOGLOBIN 14.8 g/dL (12.0-16.0); LYMPH# 1.14 X1000 (1.2-3.4); LYMPH% 18.5 % (20.5-51.1); MCH 30.3 PG (27-31); MCHC 33.3 g/dL (33-37); MCV 91.2 FL (81-99); MONO# 0.82 X1000 (0.11-0.59); MONO% 13.3 % (1.7-9.3); PLT 150 X1000 (130-400); RBC 4.88 XMIL (4.2-5.4)
[2016-11-26] MEDS: HUMULIN R SUBQ SCH ×3 (06:47→18:41)
[2016-11-26 07:26] LABS: CALCIUM 8.3 mg/dL (8.8-10.2); POTASSIUM 4.1 mmol/L (3.5-5.1)
[2016-11-26] MEDS: DUONEB (A & A) INH SCH ×3 (07:57→20:07)
[2016-11-26] MEDS: COZAAR PO SCH (09:44)
[2016-11-26] MEDS: APRESOLINE PO SCH ×3 (09:44→18:21)
[2016-11-26] MEDS: ISORDIL PO SCH ×3 (09:44→18:21)
[2016-11-26] MEDS: LASIX IV SCH ×2 (09:44→21:50)
[2016-11-26] MEDS: BYSTOLIC PO SCH (09:44)
--- NOTE | 2016-11-26 11:43 | PROGRESS NOTE ---
DATE: 11/26/2016 SUBJECTIVE: Patient is sitting up in bed. She is in no acute distress. OBJECTIVE: Vital signs: Temperature 97.6 degrees, pulse 58, respiratory rate 18, blood pressure 162/65. Intake and output: Intake 660 mL. Output 2.5 L. General: This is an elderly, non- Ghanaian-speaking female resting in bed. No acute distress. HEENT: Normocephalic, atraumatic. Oral mucosa is moist. Neck: Supple. Trachea midline. No JVD. Cardiovascular : Regular rate and rhythm. She has an S4 with a systolic murmur. Pulmonary: Equal excursion. She is clear bilaterally. There is no wheeze or rhonchi noted. Abdomen: Soft. Positive bowel sounds. : Not inspected. Extremities: She has trace pretibial edema. Integumentary: Skin is warm and dry without rash or lesion. LAB DATA: WBC of 6.1, hemoglobin 14.8, hematocrit 44.5. Sodium 133, potassium 4.1, CO2 21, BUN 53, creatinine 2.5, calcium 8.3. Renal ultrasound with 9 cm and 10 cm kidney, right and left, with no hydronephrosis. ASSESSMENT AND PLAN: Chronic kidney disease stage 3B to 4. Her renal function is unchanged. Her urine output is excellent. She is in negative territory over the last several days. No changes needed from our perspective. We will follow her as an outpatient. rg Seen, data reviewed, discussed with Rebecca Gregg on 11/26/15. I agree with the above assessment and plan of care. rg Dictated by IGLESIA Wilson for Emerson Dumont MD [facility]ol[facility]
[2016-11-26] MEDS: LEVAQUIN 500 MG/D5W 100 ML IV SCH (13:02)
--- NOTE | 2016-11-26 19:42 | PROGRESS NOTE ---
DATE: 11/26/2016 SUBJECTIVE: This patient states that she is feeling better. She is not complaining of nausea or vomiting today. She is not complaining of shortness of breath or belly pain. No chest pain either. OBJECTIVE: Vital Signs: Temperature 98.1 degrees, pulse 64, respiratory rate 18, blood pressure 171/54, oxygen saturation 100% on 2 L of nasal cannula. HEENT: Head normocephalic. No trauma. PERRLA. Neck: Supple. Positive JVD. Central trachea. Chest: Clear to auscultation. No wheezing. Mild rales at the bases. Abdomen: Soft, nontender, nondistended. No hepatosplenomegaly. Extremities: She has a right below-knee amputation, left extremity trace edema. No clubbing. No cyanosis. Neurological: The patient is alert. She is oriented x3. No focal neurological deficits. LABORATORY: WBC 6.1, hemoglobin 14.8, hematocrit 44.5, platelet 150,000. Sodium 133, potassium 4.1, chloride 93, bicarbonate 21, BUN 53, creatinine 2.5, glucose 108. Calcium 8.3. 24 hour urine protein 4836. ASSESSMENT AND PLAN: 1. Acute systolic heart failure exacerbation. Cardiology Department is on board. We will continue with the same management for now. This patient is not having symptoms today. 2. Nausea and vomiting. Resolved. 3. Severe proteinuria. Probably this patient has a nephrotic syndrome, Nephrology is on board. 4. Chronic kidney disease, stage 3. We will continue to monitor the creatinine , Nephrology Department is on board. 5. Urinary tract infection. We will continue with the same treatment for now. She is on the levofloxacin and the urine culture showed Streptococcus agalactiae. I repeated the urine culture and it is positive again for gram-positive cocci, we will continue to monitor. 6. Type 2 diabetes. The glucose is stable today, we will continue with the same management for now. 7. History of coronary artery disease. Aware. Cardiology Department is on board. MTDD
[2016-11-27] MEDS: HUMULIN R SUBQ SCH ×5 (03:57→23:07)
[2016-11-27] MEDS: OCUFLOX 0.3% OPH SOLUTION BOTH EYES SCH ×6 (03:57→23:08)
[2016-11-27] MEDS: LOVENOX SUBQ SCH ×2 (04:38→06:43)
[2016-11-27 07:22] LABS: MANUAL DIFF NEEDED? NO
[2016-11-27 07:32] LABS: BASO% 0.3 % (0.0-0.8); EOS# 0.21 X1000 (0.0-0.7); EOS% 3.5 % (0.0-10.0); HEMOGLOBIN 14.4 g/dL (12.0-16.0); LYMPH% 20.1 % (20.5-51.1); MCH 29.8 PG (27-31); MCHC 32.7 g/dL (33-37); MCV 91.1 FL (81-99); MONO# 0.99 X1000 (0.11-0.59); MONO% 16.6 % (1.7-9.3); MPV 11.8 FL (7.4-10.4); NEUT% 59.5 % (42.2-75.2); PLT 170 X1000 (130-400); RBC 4.83 XMIL (4.2-5.4)
[2016-11-27 07:48] LABS: CALCIUM 8.5 mg/dL (8.8-10.2); POTASSIUM 4.1 mmol/L (3.5-5.1)
--- NOTE | 2016-11-27 08:13 | Diag Imaging Result Document ---
PROCEDURE NAME: CHEST-PORTABLE - 11/26/2016 PORTABLE CHEST: COMPARISON: 11/22/2016. FINDINGS: Sternal wires are present. The heart remains enlarged. Pulmonary edema persists although it is less pronounced than on the prior exam. I believe there are small pleural effusions. The one on the right may be slightly smaller than on the prior study. There is basilar atelectasis. Partial clearing in the lung bases. IMPRESSION: Overall interval improvement.
[2016-11-27] MEDS: LEVAQUIN PO SCH (09:15)
[2016-11-27] MEDS: COZAAR PO SCH (09:15)
[2016-11-27] MEDS: ISORDIL PO SCH ×3 (09:15→17:37)
[2016-11-27] MEDS: APRESOLINE PO SCH ×3 (09:17→17:37)
[2016-11-27] MEDS: BYSTOLIC PO SCH (09:17)
[2016-11-27] MEDS: LASIX IV SCH ×2 (09:17→23:08)
[2016-11-27] MEDS: DUONEB (A & A) INH SCH ×3 (09:57→19:26)
--- NOTE | 2016-11-27 16:15 | PROGRESS NOTE ---
DATE: 11/27/2016 SUBJECTIVE: Patient reports feeling better. She is not getting short of breath. She reports that she was not walking around. No chest pain. OBJECTIVE: Vital Signs: Temperature 98.1 degrees, heart rate 53, respiratory rate 16, blood pressure 125/46, O2 saturation 95% on 2 L nasal cannula. General Examination: She is a 76-year- old female, lying in bed, in no acute distress. HEENT: Head is normocephalic and atraumatic. Anicteric sclerae and pale conjunctivae. Mucous membranes moist. Neck: Supple. No JVD noted. No carotid bruits. No lymphadenopathy. No thyromegaly. Cardiovascular: S1, S2 heard. No murmurs, gallops, rubs. Regular rate and rhythm. Respiratory: This are very few rales in both bases. There is no wheezing. Patient is not using any accessory muscles or having work of breathing. Abdomen: Soft, nontender to palpation. Nondistended. Bowel sounds present. No organomegaly. Extremities: Gxlyy-skmvy-izr-knee amputation in the left extremity. Neurological: Patient alert, oriented x3. No focal neurological deficits. LABORATORY DATA: CBC is okay. BMP is also okay except creatinine 2.8, and BUN 59, with glucose 207. ASSESSMENT/PLAN: 1. Acute systolic heart failure exacerbation. Patient is on Lasix 40 mg IV q.12 hours and patient is doing fine. At this point, we can continue with the same management and probably if tomorrow she is feeling fine we can let her go. Chest x-ray did not show worsening pulmonary edema. 2. Nausea and vomiting. Resolved. 3. Chronic kidney disease, stage 3. Will continue with the same management. 4. Urinary tract infection. Patient is on levofloxacin. We will continue with same management upon discharge. 5. Type 2 diabetes. We will continue with the same management right now. 6. History of coronary artery disease. Cardiology is on board. 7. The patient is doing good and also able to walk around. She may be discharged tomorrow.
--- NOTE | 2016-11-27 18:15 | PROGRESS NOTE ---
DATE: 11/27/2016 SUBJECTIVE: Spoke with the patient via the translation line. She states that she is feeling better and that she is not short of breath. OBJECTIVE: Vital signs: Temperature 98.1, pulse 53, respiratory rate 16, blood pressure 125/46. Intake 360 mL, output 1.8 liters. General: This is an elderly female resting in bed. She is awake and alert, in no acute distress. She is able to talk appropriately on the language line. HEENT: Normocephalic, atraumatic. Conjunctivae are pale. Mucosa moist. Neck : Supple. No JVD. Cardiovascular: Regular rate and rhythm. No murmur or gallop appreciated. Pulmonary: She has equal excursion. She has no coarse rhonchi. She has no wheeze. She has no increased work of breathing. Abdomen: Soft with positive bowel sounds. Genitourinary: Not inspected. She has a Billingsley. Extremities: Right BKA. No edema. Moving upper extremities without difficulty. Integumentary: Skin is warm and dry without rash or lesion. LABORATORY DATA: WBC of 5.9, hemoglobin 14.4, hematocrit 44.0, and platelet count of 170. Sodium 135, potassium 4.1, CO2 30, BUN 59, creatinine 2.8. Calcium 8.5. ASSESSMENT AND PLAN: 1.cKD4. Her renal function has been essentially at this level now for several days and no real change. We can follow the patient in two weeks after her discharge with labs. 2. Acute systolic heart failure has been improving with diuretics and has had adequate urine output. Her chest x-rays have been stable, and it is our understanding she will likely go home the next day or so. 3. Electrolytes, acid-base balance, anemia. These are all stable. 4. Hypertension, controlled. Seen, data reviewed, discussed with Rebecca Gregg on 11/27/16. I agree with the above assessment and plan of care. rg Dictated by IGLESIA Wilson for Emerson Dumont MD [facility]ol[facility]
[2016-11-28] MEDS: OCUFLOX 0.3% OPH SOLUTION BOTH EYES SCH ×4 (02:55→13:01)
[2016-11-28] MEDS: LOVENOX SUBQ SCH (05:32)
[2016-11-28] MEDS: HUMULIN R SUBQ SCH ×2 (06:23→11:21)
[2016-11-28] MEDS: LEVAQUIN PO SCH (09:02)
[2016-11-28] MEDS: COZAAR PO SCH (09:02)
[2016-11-28] MEDS: BYSTOLIC PO SCH (09:02)
[2016-11-28] MEDS: APRESOLINE PO SCH ×2 (09:02→13:01)
[2016-11-28] MEDS: ISORDIL PO SCH ×2 (09:02→13:01)
[2016-11-28] MEDS: LASIX IV SCH (11:20)
[2016-11-28 11:34] VITALS: BP 132/42
--- NOTE | 2016-11-28 11:35 | PROGRESS NOTE ---
DATE: 11/28/2016 SUBJECTIVE: Denies any pain or shortness of breath. OBJECTIVE: Vital Signs: Temperature 98 degrees, pulse 60, respiratory rate 18 , blood pressure 158/66. Intake and output: Intake 720 mL. Output 1.5 L. General: Elderly female resting in bed. She is awake and alert. No acute distress. HEENT: Normocephalic, atraumatic. Oral mucosa moist. Neck: Supple. No JVD. Cardiac: Regular rate and rhythm without murmur or gallop. Pulmonary: Equal excursion. No wheeze noted. Abdomen: Soft with positive bowel sounds. : Not inspected. She has a Billingsley catheter. Extremities: Right BKA. Left, no edema. LAB DATA: None today. ASSESSMENT AND PLAN: 1. Chronic kidney disease. Renal function was not measured today. She has been very stable over the last several days. We have requested that she have a follow-up appointment in our office in 2 weeks after discharge with routine labs. 2. Acute systolic heart failure exacerbation. She remains in negative fluid territory and improved breathing. 3. Hypertension. Moderately controlled. Cardiology on board. Seen, data reviewed, discussed with Rebecca Gregg on 11/28/16. I agree with the above assessment and plan of care. rg Dictated by IGLESIA Wilson for Emerson Dumont MD [facility]
[2016-11-28] MEDS ORDERED: LASIX PO ONE (11:46)
[2016-11-28] MEDS: DUONEB (A & A) INH SCH (11:49)
--- NOTE | 2016-11-28 21:05 | DISCHARGE SUMMARY ---
ADMISSION DATE: 11/22/2016 DISCHARGE DATE: 11/28/2016 CONSULTATIONS: 1. Ezra Amor M.D., Cardiology. 2. Emerson Dumont M.D., Nephrology. PERTINENT PROCEDURES: 1. Echocardiogram showed EF of 40-45% with some wall motion abnormality the posterior lateral wall of the left ventricle. 2. Renal ultrasound showed probable medical renal disease. No evidence of obstructive uropathy. 3. Follow-up chest x-ray showed overall improvement. DISCHARGE DIAGNOSES: 1. Acute systolic heart failure exacerbation resolved. 2. The patient will go home on an increased dose of p.o. Lasix. 3. Also added Isordil 10 mg p.o. t.i.d. as well as the addition of Apresoline 25 mg p.o. t.i.d. 4. Nausea and vomiting resolved. 5. Chronic kidney disease stage 3. 6. Chronic kidney disease stage 4. Renal function has been essentially at this level for several days with no real change. She can follow up with Dr. Dumont in 2 weeks with lab work. 7. Urinary tract infection. Continue on p.o. Levaquin. 8. Diabetes mellitus type 2. Continue with home medications. 9. Coronary artery disease history. HOSPITAL COURSE: Briefly, Ms. Alvarez is a 75-year-old female with a past medical history of systolic heart failure with an EF of 25-30%, type 2 diabetes, diabetic neuropathy, hypertension. The patient reported that 3 weeks ago she saw her family doctor, Dr. Perez, and was diagnosed with bronchitis and given some cough medication. She has had a persistent cough that has been dry. Over the last week she has had some left lower extremity swelling but no orthopnea or PND. She denied any chest pain or anginal-type symptoms. She came to the ED for her cough because it was getting worse and her exercise tolerance had diminished significantly over the past couple of days. The patient was admitted and started on diuretics for acute systolic heart failure. She was started on a very low-dose ARB as well as placed on breathing treatments, strict I's and O's with daily weights. We did an echocardiogram. Patient was started on p.o. Levaquin for UTI as well as Nephrology and Cardiology consultations. The patient was monitored several days and initiated on new medication by Cardiology with Isordil 10 mg t.i.d. as well as continue with IV Lasix and added Apresoline t.i.d. The patient's renal function has been essentially the same over the last several days with no real change. Again she will follow up with Dr. Dumont in 2 weeks with lab work. The patient was transitioned to p.o. Lasix today. The patient is anxious to get home. She has home health and physical therapy already set up. She will go back home with her previous home health and PT. VITAL SIGNS AT TIME OF DISCHARGE: Temperature 98.5 degrees, heart rate 59, respirations 20, blood pressure 132/42, O2 is 99%. DISCHARGE DIET: Diabetic. DISCHARGE MEDICATIONS: 1. Lantus. 2. [place] 5/325. 3. Neurontin 100 mg p.o. t.i.d. p.r.n. 4. Potassium 10 mEq p.o. daily. 5. Apresoline 25 mg p.o. t.i.d. 6. Bystolic 10 mg p.o. daily. 7. Cozaar 25 mg p.o. daily. 8. Isordil 10 mg p.o. t.i.d. 9. Lasix 40 mg p.o. b.i.d. 10. Levaquin 250 mg p.o. daily. 11. Afrin nasal spray, 2 sprays nasally p.r.n. FOLLOWUP: 1. The patient is being discharged with home health and physical therapy. 2. She will need to follow up with Dr. Dumont in 2 weeks with lab work. 3. She will also need to follow up with Cardiology within the month. 4. She will also need to follow with her primary care physician. DISCHARGE TIME: Greater than 30 minutes. Dictated by IGLESIA Dean for Gonzalo Malave MD
== END 2016-11-28 13:38 | disposition home health service (06) | DRG 291 ==
LOC: ED 20:26 → 3N 11-22 00:54 → DIRADM 11-23 10:01 → 3N 11-23 10:05 → DIRADM 11-23 11:21 → 3N 11-23 11:27
PROVIDERS: ATTEND Internal Medicine
DX: I13.0 Hypertensive heart and chronic kidney disease with heart failure and stage 1 through stage 4 chronic kidney disease, or unspecified chronic kidney disease (principal); I50.23 Acute on chronic systolic (congestive) heart failure; N18.4 Chronic kidney disease, stage 4 (severe); E87.5 Hyperkalemia; E11.22 Type 2 diabetes mellitus with diabetic chronic kidney disease; E11.40 Type 2 diabetes mellitus with diabetic neuropathy, unspecified; N39.0 Urinary tract infection, site not specified; Z79.4 Long term (current) use of insulin; Z95.1 Presence of aortocoronary bypass graft; Z96.651 Presence of right artificial knee joint; Z89.511 Acquired absence of right leg below knee; I25.10 Atherosclerotic heart disease of native coronary artery without angina pectoris; Z79.899 Other long term (current) drug therapy; I35.1 Nonrheumatic aortic (valve) insufficiency; I77.89 Other specified disorders of arteries and arterioles; E11.51 Type 2 diabetes mellitus with diabetic peripheral angiopathy without gangrene; Z83.3 Family history of diabetes mellitus
CPT/HCPCS: 71010; 71020; 74022; 76770; 80048; 80053; 80061; 81001; 81050; 82150; 82575; 82948; 83036; 83690; 83735; 83880; 84156; 84166; 84484; 85025; 86335; 87077; 87088; 87186; 93005; 93010; 93306; 94640; 94761; 96374; J0696; J1650; J1940; J2405; J7042; 97116-GP; 97530-GP

== ENCOUNTER 2017-03-14 14:42 | Inpatient (IN) ==
[2017-03-14] MEDS ORDERED: ATROPINE IV ONE ×2 (14:58→15:50)
[2017-03-14] MEDS ORDERED: ATROPINE ONE ×2 (14:58→15:47)
[2017-03-14 15:06] LABS: MANUAL DIFF NEEDED? NO
[2017-03-14 15:09] LABS: BASO% 0.3 % (0.0-0.8); EOS# 0.11 X1000 (0.0-0.7); EOS% 1.9 % (0.0-10.0); HEMATOCRIT 34.6 % (37.0-47.0); HEMOGLOBIN 11.4 g/dL (12.0-16.0); IMM GRAN# 0.01 X1000 (0.0-0.04); IMM GRAN% 0.2 % (0.0-0.5); LYMPH# 1.75 X1000 (1.2-3.4); LYMPH% 29.8 % (20.5-51.1); MCH 29.9 PG (27-31); MCHC 32.9 g/dL (33-37); MCV 90.8 FL (81-99); MONO# 0.83 X1000 (0.11-0.59); MONO% 14.1 % (1.7-9.3); MPV 12.4 FL (7.4-10.4); NEUT% 53.7 % (42.2-75.2); PLT 165 X1000 (130-400); RBC 3.81 XMIL (4.2-5.4)
--- NOTE | 2017-03-14 15:11 | EKG Report ---
Test Performed on : 03/14/2017 2:57:49 PM Test Reason : CHEST PAIN Blood Pressure : / mmHG Vent. Rate : 040 BPM Atrial Rate : 040 BPM P-R Int : 164 ms QRS Dur : 114 ms QT Int : 548 ms P-R-T Axes : 066 -62 125 degrees QTc Int : 446 ms Marked sinus bradycardia. with sinus arrhythmia. Low voltage QRS Incomplete right bundle branch block Left anterior fascicular block Cannot rule out Anterior infarct (cited on or before 30-APR-2015) Abnormal ECG When compared with ECG of 23-NOV-2016 08:04, Vent. rate has decreased BY 21 BPM Questionable change in initial forces of Anterior leads Nonspecific T wave abnormality no longer evident in Inferior leads Unconfirmed Result
[2017-03-14 15:38] LABS: INR 1.18 (0.86-1.15); PROTIME 15.3 Seconds (12.1-15.5)
[2017-03-14 15:39] LABS: PTT PL 34.3 Seconds (22.6-43.9)
[2017-03-14 15:57] LABS: ALBUMIN 3.4 g/dL (3.5-5.0); CALCIUM 8.7 mg/dL (8.8-10.2); MAGNESIUM 2.7 mg/dL (1.5-2.7); TOTAL BILIRUBIN 0.8 mg/dL (0.20-1.00); TOTAL PROTEIN 6.8 g/dL (6.3-8.3)
[2017-03-14 16:00] LABS: POTASSIUM 5.9 mmol/L (3.5-5.1)
[2017-03-14] MEDS ORDERED: SODIUM BICARBONATE 8.4% IV PUSH ONE (16:37)
--- NOTE | 2017-03-14 16:57 | PROVIDER DOCUMENTATION ---
This chart was entered by Noemi Rosales Scribe, acting as scribe for Reece Bledsoe MD. HPI-General Adult - General Chief Complaint: Weakness Stated Complaint: WEAKNESS Time Seen by Provider: 03/14/17 15:04 Source: patient Allergies/Adverse Reactions: Patient Allergies Allergy/AdvReac Type Severity Reaction Status Date / Time No Known Allergies Allergy Verified 11/21/16 21:20 Home Medications: Home Medication List Medication Instructions Recorded Confirmed Last Taken Type Insulin Glargine [Lantus] 0 unit SUBQ QHS 08/27/13 11/21/16 05/21/15 21:00 History Hydrocodone Bit/Acetaminophen 1 each PO Q8H PRN PRN 05/22/15 11/21/16 05/22/15 09:00 History [Hydrocodon-Acetaminophen 5-325] Oxymetazoline Nasal [place] [Afrin 2 spray SONAM PRN PRN #1 bottle 02/25/16 Unknown Rx Nasal [place]] Gabapentin [Neurontin] 100 mg PO TID PRN 11/21/16 11/21/16 Unknown History Potassium Chloride 10 meq PO DAILY 11/21/16 11/21/16 11/21/16 History Furosemide [Lasix] 40 mg PO BID #60 tablet 11/28/16 Unknown Rx Hydralazine [Apresoline] 25 mg PO TID #84 tablet 11/28/16 Unknown Rx Isosorbide Dinitrate [Isordil] 10 mg PO TID #84 tablet 11/28/16 Unknown Rx Levofloxacin [Levaquin] 250 mg PO DAILY #5 tablet 11/28/16 Unknown Rx Losartan [Cozaar] 25 mg PO DAILY #0 tablet 11/28/16 Unknown Rx Nebivolol [Bystolic] 10 mg PO DAILY #0 tablet 11/28/16 Unknown Rx - History of Present Illness -Gen Adult Nature of Presenting Problems: 76 yo F presents to the ER with complaint of weakness and bradycardia. Pt does not speak [place], family poor historians. Triage note states pt was sent for leg swelling and weakness. Upon arrival pt's HR is low 40's. Associated Symptoms: reports: weakness Review of Systems - Adult - REVIEW OF SYSTEMS - ADULT Constitutional: denies: chills, fever Eyes: reports: no symptoms reported Ears, Nose, Mouth & Throat: reports: no symptoms reported Cardiovascular: reports: irregular heart rate. denies: chest pain, palpitations Respiratory: denies: cough, shortness of breath Gastrointestinal: reports: nausea, vomiting. denies: abdominal pain, diarrhea Genitourinary: reports: no symptoms reported Musculoskeletal: reports: no symptoms reported Integumentary: reports: no symptoms reported Neurological: reports: no symptoms reported Psychiatric: reports: no symptoms reported Endocrine: reports: no symptoms reported Hematologic/Lymphatic: reports: no symptoms reported Allergic/Immunologic: reports: no symptoms reported All Other Systems: Reviewed and Negative Past History - Adult - PAST MEDICAL HISTORY-ADULT Review of Records: reports: Nursing Assessment Review, Medications Reviewed Cardiovascular: reports: CAD (CABG), CHF, HTN, hyperlipidemia Respiratory: reports: COPD Endocrine/Immune: reports: Diabetes - PRIOR SURGERIES/PROCEDURES Surgical/Procedure History: reports: CABG, orthopedic (extremity), joint replacement (right knee replacement ), other (open heart sugery) - IMMUNIZATION STATUS Childhood Immunizations: See Nurse Assessment Flu Vaccine: See Nurse Assessment Physical Exam-General - PHYSICAL EXAM-ADULT Initial Vital Signs Reviewed: Yes - CONSTITUTIONAL General Appearance: alert, lethargic - EYES Eyes: PERRL/EOMI, other (icteric) - HEAD, EARS, NOSE, MOUTH & THROAT HENMT: normocephalic/atraumatic, normal ENT inspection - NECK Neck: supple, normal inspection - RESPIRATORY Respiratory: no respiratory distress, no accessory muscle use - CARDIOVASCULAR Cardiovascular: normal peripheral pulses, regular rate, rhythm - GASTROINTESTINAL (ABDOMEN) Abdominal Exam: normal bowel sounds, non tender, soft - MUSCULOSKELETAL Back Exam: no CVA tenderness, no vertebral tenderness Extremity: normal gait, normal inspection - SKIN Integumentary: warm/dry, jaundice. negative: normal color - NEUROLOGIC Neurologic: grossly normal, no motor/sensory deficits - PSYCHIATRIC Psych/Mental Status: normal mood/affect, normal thought content, normal thought process, oriented x 3 Progress - PLAN OF CARE/RESULTS Progress/Plan/Lab Results: Vital Signs - 8 hr 03/14/17 14:48 Temperature 97 F L Pulse Rate 89 Respiratory Rate 11 L Blood Pressure 142/111 O2 Sat by Pulse Oximetry 96 Orders Category Date Time Status Cardiac Monitoring DIRECTED Care 03/14/17 14:54 Active Oxygen Therapy- ED Nursing DIRECTED Care 03/14/17 14:54 Active Saline Loc NOW Care 03/14/17 14:54 Active CBC WITH ELECTRONIC DIFF [HEME] Stat Lab 03/14/17 14:54 Ordered CK PROFILE [SP CHEM] Stat Lab 03/14/17 14:54 Ordered COMPREHENSIVE METABOLIC PANEL [CHEM] Stat Lab 03/14/17 14:54 Ordered D-DIMER PL [COAG] Stat Lab 03/14/17 14:54 Ordered MAGNESIUM [CHEM] Stat Lab 03/14/17 14:54 Ordered PRO B-NATRIURETIC PEPTIDE Stat Lab 03/14/17 14:[address] Ordered [address]IME WITH INR PL [COAG] Stat Lab 03/14/17 14:[address] [COAG] Stat Lab 03/14/17 14:54 Ordered TROPONIN T Stat Lab 03/14/17 14:54 Ordered Atropine Med 03/14/17 14:58 Discontinued 0.5 mg IV NOW ONE Atropine Med 03/14/17 14:58 Discontinued 1 mg .ROUTE .STK-MED ONE EKG [EKG] Stat Ther 03/14/17 14:54 Ordered Result Diagrams: 03/14/17 14:50 03/14/17 14:50 - EKG 1 Time of EKG reading by physician:: 14:57 EKG Read and Signed by:: Reece Bledsoe EKG Interpretation (*Must complete 3 of following elements*): Abnormal Rate: 40 Rhythm: marked sinus rodrick with sinus arrhyhtmia [place]: normal QRS: RBB (incomplete), other (low voltage) NE Interval: normal ST Wave: normal Comments: L anterior fasicular block, cannot rule out anterior infarct - XRAY 1 XRAY Study: Chest Impression: Abnormal (massive cardiomegaly, moderate pulmonary venous congestion , bilat pleural effusions, RLL infiltrate. Per Dr. Bledsoe) - CONSULTS/PCP/HOSPITALIST Notification #1 *Consult/PCP/Hospitalist*: Dr. Perez Time Discussed: 16:47 Consult Disposition: Admit Departure - Departure Date of Disposition Decision: 03/14/17 Time of Disposition Decision: 16:55 DIAGNOSIS: CHF (congestive heart failure), Hyperkalemia Disposition: ADMITTED INPATIENT 09 Certified Medical Emergency: Emergent Condition: Critical Referrals and Follow-Ups: Anders Perez MD [Primary Care Provider] - - Critical Care Note This patient required my direct & personal management of CC.: Yes Total Time (mins): 90 Critical Care Statement: This patient required my direct personal management to treat or rule out processes, the absence of which, could potentiallly result in sudden, clinically significant life or limb threatening deterioration. Attestation - Physician/ ROGELIO Attestation The physician spent face to face time with patient:: Yes Advanced Practice Provider documentation review:: The physician spent face to face time with this patient and agrees with all MLP documentation, treatment, and medical decision making by the MLP. See provider notes for further information. This chart was documented by the indicated scribe, (Noemi Rosales Scribe) and accurately reflects the services I performed and decisions made by me, Reece Bledsoe MD, as attested by the provider's signature.
[2017-03-14] MEDS ORDERED: CALCIUM GLUCONATE 1 GM in NS 50 ML IV ONE (17:00)
--- NOTE | 2017-03-14 17:06 | Diag Imaging Result Doc PS360 ---
EXAM: CHEST-PORTABLE - 03/14/2017 HISTORY: dyspnea TECHNIQUE: Portable chest 1630 COMPARISON: 11/26/2016 FINDINGS: There is cardiomegaly similar to the previous exam. There are sternal wires from previous surgery again seen. There is mild prominence of vascular markings, most notably on the right. There is no discrete consolidation, pleural effusion, or pneumothorax identified. There is haziness at the lateral right base which likely relates to soft tissue overlap. IMPRESSION: Stable cardiomegaly. Apparent mild vascular congestion. No discrete pneumonia. Electronically signed by Ari Felix 03/14/2017 5:04 PM
[2017-03-14] MEDS ORDERED: HUMULIN R IV ONE ×2 (18:19→19:25)
[2017-03-14] MEDS ORDERED: D50W SYRINGE IV ONE ×2 (18:19→19:24)
[2017-03-14] MEDS ORDERED: ALBUTEROL NEB INH ONE ×2 (18:19→19:26)
[2017-03-14 19:19] LABS: UR CREAT RANDOM 56.5 mg/dL (11-20); UR PROT RANDOM 153.3 mg/dL
[2017-03-14] MEDS ORDERED: HUMULIN R (PARKWAY) ONE (19:28)
[2017-03-14] MEDS ORDERED: ALBUTEROL NEB ONE (19:30)
[2017-03-14 19:33] LABS: CALCIUM 8.7 mg/dL (8.8-10.2); POTASSIUM 5.7 mmol/L (3.5-5.1)
[2017-03-14] MEDS: VELTASSA PO ONE ×2 (19:45→22:02)
[2017-03-14] MEDS ORDERED: ZOSYN 2.25 GM/NS 2.25 GM/50 ML IVPB IV SCH (20:00)
--- NOTE | 2017-03-14 20:01 | HISTORY AND PHYSICAL ---
PRIMARY CARE PHYSICIAN: IGLESIA Ortega CHIEF COMPLAINT: Left lower extremity redness and edema with generalized weakness. HISTORY OF PRESENT ILLNESS: This is a 76-year-old female with a history of systolic congestive heart failure, CAD, insulin-dependent diabetes, COPD, who presented to the emergency room with family members complaining of generalized weakness and left lower extremity edema and pain. The patient is a very poor historian. There is a language barrier and she is slow to answer questions at present, and family members with her are very poor historians. According to the family members, the patient had been in her normal state of health until some time Saturday or Saturday. Evidently they had gone to [facility], spent some time out there and they felt that she was at her normal state. Some time through the night Saturday or Saturday she began to state that she was tired and just felt bad all over. She did start complaining of left lower extremity pain and over the last probably 36 hours they noted a scabbed area to her mid finley and redness starting. By this morning, redness was present from just below the knee down to the ankle with swelling. They are unaware of any fevers or chills. No one is aware of any known injury, bug bite, et cetera. On presentation to the emergency room, she had a heart rate of 89. Within 45 minutes, her heart rate dropped to 41 and remained 41-47. She was given 0.5 of atropine twice with no change in heart rate. She was also found to have a potassium of 5.9, with a BUN of 107, a creatinine of 4, with her baseline being 2-2.5. On questioning the family, they did state that prior to coming to the emergency room, they realized no one knows when she urinated last and she was unable to tell them. A Billingsley catheter was placed for about 30 mL of urine. She was given 50 mEq of bicarb, along with a gram of calcium gluconate and hospitalists were consulted to admit. PAST MEDICAL HISTORY: Congestive heart failure, systolic with an EF of 40-45% in October 2016. CAD status post coronary artery bypass grafting in February 2010 with a SOLIS to the left LAD, saphenous vein graft to diagonal, saphenous vein graft to the OM, saphenous vein graft to posterolateral branches, COPD, hypertension, diabetes mellitus, carotid artery disease. PAST SURGICAL HISTORY: Coronary artery bypass graft. Right above-knee amputation. SOCIAL HISTORY: She does not smoke, drink alcohol or take illicit drugs. She does live with family members. ALLERGIES: No known drug allergies. HOME MEDICATIONS: A list will be obtained. REVIEW OF SYSTEMS: Unable to obtain. PHYSICAL EXAMINATION: GENERAL: This is a 76-year-old female who is lying in the bed in mild distress having leg pain. VITAL SIGNS: Blood pressure is 86/45 with a heart rate of 47. Ranging 80-90 systolic, 30s to 40s diastolic, with heart rates ranging 44-47. CARDIOVASCULAR: Regular rate and rhythm. S1 and S2 are appreciated. She does have a soft systolic murmur. PULMONARY: Breath sounds are diminished with no increased work of breathing noted. GASTROINTESTINAL: Abdomen is soft, nontender, nondistended. Bowel sounds in all 4 quadrants. EXTREMITIES: She has a right above-knee amputation. Left lower extremity she has edema, erythema and warmness from just below the knee down to the ankle. She does have like a dime-sized scabbed area noted mid finley with very faint pedal pulses. NEUROLOGIC: She is alert. She answers questions via an chancery clerk. She does follow commands. DIAGNOSTICS: WBC is 5.8 with a hemoglobin 11.4, hematocrit 34.6, and platelets 165,000. Sodium is 127, potassium 5.9, BUN 107, creatinine 4 with a glucose of 207. Troponin is 0.018 with a proBNP of 27,509. EKG reveals incomplete right bundle with sinus bradycardia at a rate of 40, a left anterior fascicular block. In comparison to her EKG in October 2016, she did have incomplete right bundle at that time. Chest x-ray revealed stable cardiomegaly with apparent mild vascular congestion with no discrete pneumonia. ASSESSMENT: 1. Sinus bradycardia. 2. Hyperkalemia. 3. Acute kidney injury. 4. Left lower extremity cellulitis. 5. Systolic heart failure. 6. Hypotension. 7. Diabetes mellitus. 8. Chronic obstructive pulmonary disease. PLAN: The patient will be transferred to [facility] Unit with Nephrology and Cardiology consulted. She was given sodium bicarb and calcium gluconate in the emergency room. We will give DuoNebs with 10 units of regular insulin, an amp of D50. Get stat labs now and repeat in 4 hours. We will hold all of her home medications. Along with stat electrolytes, we will obtain a cardiac profile as well as a troponin. These also will be repeated in 4 hours. We will obtain urine electrolytes. In regards to cellulitis left lower extremity, we will get a wound culture if there is any drainage. Blood cultures as well as urine culture have been obtained. Antibiotic coverage will be with Rocephin and clindamycin. She will remain nothing per oral. She be placed on pattern blood glucose with sliding scale insulin. Further treatments pending hospital course. Dictated by IGLESIA Dang for Anders Perez MD cc: IGLESIA Dang MD
[2017-03-14] MEDS ORDERED: LASIX IV ONE (21:53)
[2017-03-14] MEDS: ZOFRAN IV PRN (22:02)
[2017-03-14] MEDS: HUMALOG SUBQ SCH (22:04)
[2017-03-14] MEDS: TEFLARO 300 MG in NS 250 ML IV SCH (23:44)
[2017-03-15 02:26] LABS: POTASSIUM 5.8 mmol/L (3.5-5.1)
[2017-03-15] MEDS: ZOSYN 2.25 GM/NS 2.25 GM/50 ML IVPB IV SCH ×4 (02:31→20:49)
[2017-03-15] MEDS ORDERED: NS 500 ML IV ONE (03:02)
[2017-03-15 05:06] LABS: HEMATOCRIT 31.5 % (37.0-47.0); HEMOGLOBIN 10.5 g/dL (12.0-16.0); MCH 31.3 PG (27-31); MCHC 33.3 g/dL (33-37); MCV 93.8 FL (81-99); MPV 12.3 FL (7.4-10.4); RBC 3.36 XMIL (4.2-5.4)
[2017-03-15 05:23] LABS: ALBUMIN 3.2 g/dL (3.5-5.0); CALCIUM 9.1 mg/dL (8.8-10.2); MAGNESIUM 2.7 mg/dL (1.5-2.7); POTASSIUM 5.7 mmol/L (3.5-5.1); TOTAL BILIRUBIN 0.84 mg/dL (0.20-1.00); TOTAL PROTEIN 5.9 g/dL (6.3-8.3)
--- NOTE | 2017-03-15 05:26 | EKG Report ---
Test Performed on : 03/14/2017 9:07:38 PM Test Reason : BRADYCARDIA Blood Pressure : / mmHG Vent. Rate : 051 BPM Atrial Rate : 051 BPM P-R Int : 174 ms QRS Dur : 118 ms QT Int : 514 ms P-R-T Axes : 092 -57 216 degrees QTc Int : 473 ms Sinus bradycardia. Low voltage QRS Left anterior fascicular block Cannot rule out Anterior infarct (cited on or before 30-APR-2015) ST \T\ T wave abnormality, consider inferolateral ischemia Abnormal ECG When compared with ECG of 14-MAR-2017 14:57, (Unconfirmed) Incomplete right bundle branch block is no longer present Confirmed by Prateek WILSON, Duncan Tay ([id number]) on 03/15/2017 9:14:45 AM
[2017-03-15] MEDS: HUMALOG SUBQ SCH ×4 (06:08→20:49)
--- NOTE | 2017-03-15 08:02 | Diag Imaging Result Doc PS360 ---
EXAM: THORAX/ABDOMEN/PELVIS W/O CONT INDICATION: ? PNA, Sepsis, Bradycardia COMPARISON: CTA abdomen with lower extremity runoff dated 10/29/2013. No prior CT chest or conventional CT of the abdomen and pelvis is available for comparison. FINDINGS: CHEST: There are bilateral [id number] sized pleural effusions and bibasilar atelectasis, largest on the right. There are mild increased interstitial markings mainly at the bases likely representing edema. The heart is enlarged. There are coronary artery and valvular calcifications. The pulmonary arteries appear somewhat prominent suggesting possible pulmonary hypertension, probably related to congestive heart failure. No definite lymphadenopathy is appreciated. ABDOMEN/PELVIS: There is trace fluid at the periphery of the liver and layering in the pelvis. There are calcified stones layering in the gallbladder lumen. There is no definite surrounding inflammatory change. The kidneys appear somewhat atrophic. There is a Billingsley catheter in the urinary bladder and the bladder is nondistended. There is no evidence of bowel obstruction. There is no free abdominal gas or definite focal inflammatory change. There is atherosclerotic calcification involving the aorta and a few of its major branches. There is no evidence of aortic aneurysm. There is surrounding soft tissue anasarca. The remainder of the solid viscera of the abdomen and pelvis and the remainder of the GI tract are essentially unremarkable. IMPRESSION: 1.Cardiomegaly. 2.Bilateral [id number]-[id number] sized pleural effusions with adjacent bibasilar atelectasis. 3.Somewhat prominent pulmonary arteries suggesting pulmonary hypertension, likely related to congestive heart failure. 4.Soft tissue anasarca as well as only trace abdominal fluid. 5.Other incidental/nonacute findings detailed above. Electronically signed by Vikas Toro 03/15/2017 8:00 AM
[2017-03-15] MEDS ORDERED: VELTASSA PO ONE (08:55)
--- NOTE | 2017-03-15 10:22 | CONSULTATION ---
DATE OF CONSULTATION: 03/15/2017 REASON FOR CONSULTATION: Low urine output and renal failure. HISTORY OF PRESENT ILLNESS: Ms. Alvarez is a 76-year-old woman who does not speak German. Her son is at the bedside to help me to communicate. She has longstanding diabetes that requires insulin. She also has COPD, congestive heart failure, history of bypass grafting and history of right lower leg amputation because of peripheral vascular disease. She has known chronic kidney disease secondary to her diabetes with a baseline creatinine of approximately 2.8 within the last 4 months. She has had 24 hour urines collected, the last one was in October, at which time she had 5 g of proteinuria with a measured creatinine clearance of 17 mL/minute at a time when her serum creatinine was 2.8. She was feeling well overall and active. She, in fact, went on a picnic in recent days. Following that, she developed a blister on the left lower extremity. This skin lesion is what prompted her to come to the emergency room initially at [facility]. She walked in. She has not had a change in her appetite. No nausea or vomiting. No diarrhea. No chills, fevers, sweats or night sweats. No significant shortness of breath. No chest discomfort. She has had diffuse swelling and had noticed no urine output in the day prior to her presentation. They did not report this initially but then returned and reported it, and that is what prompted her broader evaluation and subsequent admission to the hospital. PAST MEDICAL HISTORY: As above. Her most recent LVEF was 40% in October. HOME MEDICATIONS: 1. Insulin. 2. Hydrocodone. 3. Potassium chloride. 4. Gabapentin. 5. Nebivolol. 6. Losartan. 7. Hydralazine. 8. Isosorbide. 9. Levofloxacin. 10. Furosemide. ALLERGIES: None. SOCIAL: No alcohol or tobacco. She lives with her extended family. FAMILY HISTORY/REVIEW OF SYSTEMS: Otherwise noncontributory. PHYSICAL EXAM: Vital Signs: Blood pressure 123/44, heart rate 47, respirations 16, afebrile. Intake 1 L, output 170 mL. PHYSICAL EXAM: Elderly woman lying at 45 degrees in no acute distress.Skin: Warm and dry. There is a small bullous lesion on the left lower extremity. No surrounding erythema or signs of infection. He does have a general darkening and some redness of the left foot. HEENT: Conjunctivae are pink. Pupils are equal. Corneal arcus is present. Oropharynx is dry. Tongue is normal. Neck: Supple. Trachea is midline. Marked jugular venous distention is present. Heart: PMI is difficult to palpate. Regular rate and rhythm with a systolic murmur present. No gallops, no rubs. Lungs: Have equal breath sounds. No crackles, wheezes, dullness or retractions. Abdomen: Obese and soft. Bowel sounds are present. No organomegaly or masses or bruits. Extremities: Have 2+ edema. No clubbing or cyanosis. Neurologic Exam: Grossly nonfocal. Again she has had a right BKA. LABORATORY DATA: Sodium 137, potassium 5.7, chloride 97, bicarbonate 23, BUN 103, creatinine 4.4, hemoglobin 10.5. IMAGING: CT of the abdomen and pelvis without evidence of obstruction. Chest x-ray with mild vascular congestion and cardiomegaly. IMPRESSION: Low urine output, high BUN and creatinine in a patient with known advanced stage 4 chronic kidney disease at very high risk for progression. Likely she has stage 5 chronic kidney disease and meets criteria for dialysis. She has no urgent indications, however. Billingsley catheter is in place. I will give high dose diuretics to address her volume status. Cardiology is consulted. No other diagnostic studies are required from my perspective. If she does not have improvement over the next 24-48 hours, then we will need to discuss initiation of dialysis. We have discussed this in the past. Her blood pressure control is excellent. Her losartan has been withheld appropriately. Potassium is high, but not alarming. No further treatment with regard to this currently. Her antibiotic dosing is appropriate. Thank you, we will follow. cc: Emerson Dumont MD
--- NOTE | 2017-03-15 11:19 | ECHO REPORT ---
ORDER DATE: 03/15/2017 LIMITED 2D ECHOCARDIOGRAM: ECHOCARDIOGRAPHIC MEASUREMENTS: 1. Interventricular septum 1.2. 2. Left ventricular posterior wall 1.1. 3. Diastolic diameter 5.4. 4. Left atrium 4. 5. Aorta 3. SUMMARY OF 2-DIMENSIONAL IMAGIN. Right ventricle was dilated. 2. Mitral valve leaflets are normal. There is moderate mitral annular calcification. 3. There is biatrial enlargement. 4. There is moderate tricuspid regurgitation. Tricuspid valve was normal. Left ventricular cavity size was normal, with estimated ejection fraction of 45% to 50%. 5. There is moderate mitral regurgitation. 6. Aortic valve leaflets not well visualized. This was a limited study. Peak velocity across the tricuspid valve was 2.4 m/sec. Pulmonary artery systolic pressure of 38 mmHg. 7. There is no pericardial effusion or obvious intracardiac mass or thrombi. cc: MD Gonzalo Winters MD
[2017-03-15] MEDS: TEFLARO 300 MG in NS 250 ML IV SCH ×2 (11:41→23:50)
[2017-03-15] MEDS: LASIX IV SCH ×2 (11:42→20:50)
--- NOTE | 2017-03-15 12:33 | CONSULTATION ---
DATE OF CONSULTATION: 03/15/2017 REASON FOR CONSULTATION: Shortness of breath, bradycardia, weakness. HISTORY: Ms. Alvarez is a 76-year-old Russian female who is known to our service. She presented to the emergency room because of progressive swelling and discomfort of the left lower extremity, shortness of breath, and lately they had noted decreased urine output. Initial x-rays reveal pleural effusions and significant elevation of proBNP level. Consultation requested for evaluation of congestive heart failure. PAST MEDICAL HISTORY: The patient's past history is positive severe coronary heart disease. She has had a previous coronary bypass procedure. She has had systolic congestive heart failure, chronic. Most recent imaging study on her from October of 2016 revealed moderately enlarged left ventricle with ejection fraction in the order of 40% to 45%, a mild degree of mitral regurgitation. The patient has a history of chronic kidney disease. Presently, she appears to be in stage 5 of chronic kidney disease. Her estimated glomerular filtration rate based on the current values of creatinine is 10 mL/min. She has hypertension. She has type 2 diabetes mellitus, carotid disease, and anemia. SURGICAL HISTORY: Previous coronary bypass back on 03/11/2010 including a mammary artery graft to the LAD, a vein graft to the first diagonal, a vein graft to first OM, a vein graft to posterolateral segment. The patient has had right below-knee amputation. SOCIAL HISTORY: She is a , retired, lives at home. Family is constantly monitoring her. Not a smoker, not a drinker. FAMILY HISTORY: Noncontributory. ALLERGIES: Negative. MEDICATIONS: Her medications listed at this admission included: 1. Potassium chloride. 2. Bystolic 10 mg daily. 3. Losartan 25 daily. 4. Levaquin 250 daily. 5. Isosorbide dinitrate 10 three times a day. 6. Insulin Lantus. 7. Hydralazine 25 three times a day. 8. Gabapentin 100 three times a day. 9. Furosemide 40 twice a day. REVIEW OF SYSTEMS: Poor functional capacity. Lately, she has been somewhat confused. No chest pains. She has been having pains in the left leg. PHYSICAL EXAMINATION: Vital signs: Blood pressure 110/49, temperature 98.7, pulse 66. General: She is awake, alert, oriented, in no distress. HEENT: Prominent neck veins. Chest: Diminished breath sounds at the bases. Cardiac: Heart sound are regular and rhythmic. She does have a prominent systolic murmur, 2/6, over the left apex. It seems to radiate to the aortic focus. Abdomen: Nontender, no masses, no hepatomegaly. Extremities: Evidence of right below-knee amputation. The left leg is particularly tender. The calf and the mid to distal third of the left leg is very tender, is warm. There is a scar of previous total knee replacement on the left side. Neurological: She has some tremor, asterixis. Her speech is somewhat slurred. The patient responds; however, she drifts into a state of lethargy very quickly. I believe the patient is encephalopathic. BLOOD WORK TODAY: Sodium is 137, potassium 5.7, BUN 103, creatinine 4.4. Her hemoglobin is 10.5, hematocrit 31.5. Magnesium 2.7. Troponin 0.024. INR 1.18. D-dimer 0.61. ProBNP 27,000. EKG: Electrocardiogram was done and it shows sinus bradycardia, rate 51. Left anterior fascicular block, diffuse T-wave abnormality in the lateral leads. This appears to be a change compared to prior EKGs in the system. IMAGING: Chest x-ray has shown cardiomegaly with vascular congestion, and CT scan of the chest shows bilateral small to moderate pleural effusions, atelectasis, and soft tissue anasarca. IMPRESSION: 1. The patient is clearly in a state of fluid overload. This more than likely relates fundamentally to severe renal insufficiency. She has stage 5 chronic kidney disease. She does have chronic systolic heart failure with ejection fraction in the range of 40% to 45% which probably contributes to this. 2. Abnormal EKG from coronary heart disease and probably metabolic abnormality. She does have some hyperkalemia. 3. Patient with severe coronary heart disease, prior coronary bypass surgery. 4. Tender left leg, possibly cellulitis. Rule out deep venous thrombosis. RECOMMENDATION: From cardiology viewpoint, there is really not a whole lot that I can do at this time. The patient needs to be diuresed, and if she does not respond, she certainly qualifies for dialysis, and I think that should be the next measure or next intervention in her case. I will discuss this with nephrology service. The patient is already encephalopathic, and with the state of fluid overload, I do not believe she is going to get better just simply with diuretics. Thank you again for the opportunity to participate in her evaluation. Best regards. cc: Enrique Sanchez MD
--- NOTE | 2017-03-15 12:34 | EKG Report ---
Test Performed on : 03/15/2017 11:20:34 AM Test Reason : bradycardia Blood Pressure : / mmHG Vent. Rate : 056 BPM Atrial Rate : 056 BPM P-R Int : 184 ms QRS Dur : 112 ms QT Int : 490 ms P-R-T Axes : 072 -42 167 degrees QTc Int : 472 ms Sinus bradycardia. Left axis deviation Incomplete right bundle branch block Cannot rule out Anterior infarct (cited on or before 30-APR-2015) ST \T\ T wave abnormality, consider lateral ischemia Abnormal ECG When compared with ECG of 14-MAR-2017 21:07, Incomplete right bundle branch block is now present Confirmed by Prateek WILSON, Duncan Tay ([id number]) on 03/18/2017 7:50:58 AM
--- NOTE | 2017-03-15 14:17 | PROGRESS NOTE ---
DATE: 03/15/2017 SUBJECTIVE: This patient is encephalopathic. She is alert just to person. She knows that she is in the hospital. She does not know which one. We have a chest CT scan that showed a moderate- sized pleural effusion with bibasilar atelectasis, prominent pulmonary arteries suggesting pulmonary hypertension, likely secondary to heart failure and anasarca. OBJECTIVE: HEENT: Head normocephalic. No trauma. PERRLA. Neck: Supple. No JVD. No masses. Central trachea. Chest: Bilateral rales. Decreased breath sounds at the bases. Abdomen: Soft, obese, protuberant, nontender. Positive bowel sounds. Cardiovascular: RRR. No murmurs. Extremities: This patient has a right BKA and the left lower extremity has cellulitis. Neurological: The patient is alert. She is oriented x1. She looks encephalopathic. ASSESSMENT AND PLAN: 1. Sinus bradycardia. We will continue to monitor. Our Cardiology Department is following this patient. We will stop any medication that can be related with a decreased heart rate, but also the possibility of uremia in this patient can cause these kind of symptoms. 2. Acute on chronic kidney disease. It looks like this patient is chronic kidney disease stage 5. We are treating this patient with diuretics, high dose. Let us see how she does. If she does not respond to this treatment, probably she will need to be dialyzed. 3. Hyperkalemia. I will order Veltassa for this patient. We will monitor the potassium. 4. Left lower extremity cellulitis. Continue with antibiotics. 5. Diastolic heart failure. Continue with diuresis. 6. Type 2 diabetes. Continue with the same management. 7. Chronic obstructive pulmonary disease, not in exacerbation at this moment. We will monitor. TIME SPENT: Critical care time was 35 minutes. cc: MD JESSEE Owens
[2017-03-16] MEDS: ZOSYN 2.25 GM/NS 2.25 GM/50 ML IVPB IV SCH ×4 (02:41→19:59)
[2017-03-16 07:44] LABS: HEMOGLOBIN 10.8 g/dL (12.0-16.0); MCH 31.1 PG (27-31); MCHC 32.7 g/dL (33-37); MCV 95.1 FL (81-99); MPV 11.8 FL (7.4-10.4); RBC 3.47 XMIL (4.2-5.4)
[2017-03-16 08:16] LABS: IRON SATURATION 24 %; TIBC 218 ug/dL; TOTAL IRON 53 ug/dL (49-151); UNBOUND IRON 165 ug/dL (112-346)
[2017-03-16 08:26] LABS: ALBUMIN 2.8 g/dL (3.5-5.0); FERRITIN 197 ng/mL (13-150); POTASSIUM 5.4 mmol/L (3.5-5.1)
[2017-03-16] MEDS: HUMALOG SUBQ SCH ×4 (08:39→21:41)
[2017-03-16] MEDS: LASIX IV SCH ×2 (10:21→21:42)
[2017-03-16] MEDS: TEFLARO 300 MG in NS 250 ML IV SCH ×2 (10:40→23:39)
[2017-03-16] MEDS: TYLENOL PO PRN ×2 (10:40→19:57)
--- NOTE | 2017-03-16 12:58 | PROGRESS NOTE ---
DATE: 03/16/2017 SUBJECTIVE: Yesterday, this patient was a little bit encephalopathic but today she is alert and oriented x3. She has been asking for food and she is tolerating that. She looks a little bit better compared with yesterday. Yesterday, we started this patient on high dose of Lasix, around 200 mg IV q.12 hours and even though he is getting this amount of treatment, urine output is around 975 mL. OBJECTIVE: Vital Signs: Temperature 98 degrees, pulse 46, respiratory rate 17, blood pressure 96/31. Oxygen saturation 92 on room air. HEENT: Head normocephalic. No trauma. PERRLA. Neck supple. No JVD. No masses. Central trachea. Chest: Decreased breath sounds at the bases. Abdomen soft, protuberant, mild tenderness to palpation at the level of the periumbilical area. Positive bowel sounds. Cardiovascular: RRR. No murmurs. Bradycardic. Extremities: This patient has a right BKA and left lower extremity has cellulitis. Neurologic: She is alert and oriented x3. She looks better today. LABORATORY: WBC 5, hemoglobin 10.8, hematocrit 33, platelets 140,000. Sodium 138, potassium 5.4, chloride 99, bicarbonate 21. BUN is 117, creatinine 51, and glucose 72. Calcium 9. Phosphorus 6.8. Albumin 2.8. ASSESSMENT AND PLAN: 1. Fluid overload, likely secondary to [id number] kidney disease and diastolic heart failure. Continue with diuresis. Cardiology and Nephrology Department are following this patient. 2. Left lower extremity cellulitis. I will continue with the same antibiotics. 3. Sinus bradycardia. We will continue to monitor. Cardiology Department is on board. She has no symptoms. 4. Diastolic heart failure. Continue with diuresis. 5. Type 2 diabetes. Continue with the same management. Stable. 6. Chronic obstructive pulmonary disease not in exacerbation not in exacerbation at this moment. We will monitor. CRITICAL CARE TIME: 35 minutes. cc: Salomon Garcia MD
--- NOTE | 2017-03-16 13:31 | PROGRESS NOTE ---
DATE: 03/16/2017 SUBJECTIVE: She is asleep, but she is arousable. She states that she feels okay but is not well. No vomiting. No shortness of breath currently. OBJECTIVE: Vital Signs: Blood pressure 96/31, heart rate 46, respirations 17, afebrile. Intake 1.2 L. Output 1 L. PHYSICAL EXAMINATION: General: Elderly woman lying at 45 degrees in no distress. Skin is warm and dry. Conjunctivae are pink. Pupils are equal. Neck veins are still distended. Trachea is midline. Heart is regular and bradycardic. No rubs. Lungs have equal breath sounds. No crackles or wheezes. Abdomen is soft, nontender. Bowel sounds present. Extremities have 1 to 2+ edema. No clubbing or cyanosis. LABORATORY DATA: Sodium 138, potassium 5.4, chloride 99, bicarbonate 21. BUN 117, creatinine 5.1. Hemoglobin 10.8. Iron saturation 24%. Ferritin 197. IMPRESSION: 1. Renal failure, stage 5. She has not responded well at all to diuretics and her BUN and creatinine have risen. She meets criteria for dialysis. I will discuss this with the patient and her family. If they desire, then we will arrange for tunneled dialysis catheter placement on Saturday and initiation of hemodialysis thereafter. 2. Electrolytes: Will add phosphate binder. She still has modest hyperkalemia. No treatment required. 3. Acid base acceptable. 4. Anemia. We will add IV Venofer. 5. Volume status. Continue IV Lasix as ordered. cc: Emerson Dumont MD
--- NOTE | 2017-03-16 14:00 | PROGRESS NOTE ---
DATE: 03/16/2017 SUBJECTIVE: Patient continues without dyspnea on room air. She denies chest pain. She received 200 mg of intravenous Lasix around 10 o'clock and since then over 2 hours has put out perhaps 50 mL of urine. OBJECTIVE: Vital signs: Blood pressure 96/31, heart rate 46 and regular. Oxygen saturation 92- 96% on room air. Jugular distention is evident. Chest: Auscultation of chest reveals diminished breath sounds at the bases. Cardiac Exam: Reveals a regular rate and rhythm without appreciable murmur or gallop. Extremities: Demonstrate 2+ edema. IMPRESSION: 1. Volume overload in setting of acute renal failure. 2. Atherosclerotic coronary disease with history of previous coronary bypass grafting. Left ventricular ejection fraction 40-45%. RECOMMENDATIONS: Continue to diurese as best possible. However it appeared that she responds poorly to significant doses of intravenous Lasix and dialysis may be needed soon. Will defer to Nephrology. cc: Dallin Santos MD
[2017-03-16] MEDS: ZOFRAN IV PRN (18:08)
[2017-03-17] MEDS: ZOSYN 2.25 GM/NS 2.25 GM/50 ML IVPB IV SCH ×4 (02:51→20:09)
[2017-03-17 06:16] LABS: HEMATOCRIT 35.2 % (37.0-47.0); HEMOGLOBIN 11.7 g/dL (12.0-16.0); MCH 31.5 PG (27-31); MCHC 33.2 g/dL (33-37); MCV 94.9 FL (81-99); MPV 12.4 FL (7.4-10.4); RBC 3.71 XMIL (4.2-5.4)
[2017-03-17] MEDS: HUMALOG SUBQ SCH ×4 (07:00→23:14)
[2017-03-17 07:21] LABS: POTASSIUM 4.9 mmol/L (3.5-5.1)
[2017-03-17 07:22] LABS: ALBUMIN 2.8 g/dL (3.5-5.0); CALCIUM 8.8 mg/dL (8.8-10.2)
[2017-03-17] MEDS: VENOFER 200 MG in NS 150 ML IV SCH (08:35)
--- NOTE | 2017-03-17 10:12 | PROGRESS NOTE ---
DATE: 03/17/2017 SUBJECTIVE: This patient is more alert and oriented today. Her son is at the bedside. We discussed about dialysis and I explained to them that this patient needs dialysis and that probably we need to put in a catheter tomorrow and start dialysis afterwards. They seem to understand. OBJECTIVE: Vital Signs: Temperature 98.2 degrees, pulse 44, respiratory rate 14, blood pressure 120/40, oxygen saturation 97% on room air. HEENT: Head normocephalic. No trauma. PERRLA. Neck: Supple. No JVD. No masses. Central trachea. Chest: Decreased breath sounds at the bases. Abdomen: Soft, protuberant. Mildly tenderness to palpation at the level of the periumbilical area. Positive bowel sounds. Cardiovascular: RRR. No murmurs. Bradycardic. Extremities: This patient has a right BKA and left lower extremity has cellulitis. Neurological: The patient is alert and oriented x3. She looks better today. LABORATORIES: WBC 5.8, hemoglobin 11.7, hematocrit 35.2, platelets 145,000. Sodium 139, potassium 4.9, chloride 99, bicarbonate 18, BUN 119, creatinine 5.7, glucose 86, calcium 8.8, phosphorus 7.5, albumin 2.8. ASSESSMENT AND PLAN: 1. Fluid overload. Likely secondary to acute on chronic kidney disease. This is stage 5 and she meets criteria for dialysis. Probably tomorrow she will have a catheter placed and dialysis afterwards. 2. Chronic kidney disease stage 5. As above. 3. Left lower extremity cellulitis. Continue with the same antibiotics. 4. Sinus bradycardia. Continue to monitor. Asymptomatic. 5. Diastolic heart failure. Continue with diuresis. 6. Type 2 diabetes. Continue with the same management. Stable. 7. Chronic obstructive pulmonary disease. Not in exacerbation at this moment. Will monitor. CRITICAL CARE TIME: 35 minutes. cc: Salomon Garcia MD
[2017-03-17] MEDS: LASIX IV SCH ×2 (11:07→23:07)
[2017-03-17] MEDS: TEFLARO 300 MG in NS 250 ML IV SCH ×2 (11:23→23:10)
--- NOTE | 2017-03-17 13:47 | CONSULTATION ---
DATE OF CONSULTATION: 03/17/2017 HISTORY OF PRESENT ILLNESS: Ms. Roma Alvarez is a 76-year-old, [place]ian female hospitalized in our ICU with congestive heart failure and chronic renal failure. We were asked to place access for hemodialysis. PAST MEDICAL HISTORY: Coronary artery bypass grafting in 2009, right below the knee amputation, diabetes type 2, carotid disease, anemia, high blood pressure. MEDICATIONS: Potassium chloride, Bystolic, losartan, Levaquin, isosorbide, insulin, hydralazine, gabapentin, Lasix. ALLERGIES: No known drug allergies. SOCIAL HISTORY: She is a . She is retired. She has family at the bedside. She does not smoke. FAMILY HISTORY: Noncontributory. REVIEW OF SYSTEMS: A 14-point review of systems was performed. She does have poor functional capacity. She is sometimes confused. She does have pain in her left leg. EXAM: General: Ms Alvarez is awake, cooperative. She speaks Ghanaian but she had family there to interpret. HEENT: She has no jaundice. No oral lesions. No cervical or supraclavicular lymphadenopathy. Heart: Has a regular rate. Lungs: Essentially clear without shortness of breath. Abdomen: Soft, nontender, without palpable mass. Extremities: She had palpable femoral pulses. Right [id number] amputation. Neurologic: No focal neurologic deficits. IMPRESSION: Renal failure, requiring hemodialysis. PLAN: PermCath placement in surgery tomorrow. I have discussed the procedure in detail with the patient and her family at the bedside including risks of bleeding, infection, nonfunctional catheter and pneumothorax. They understand the need to proceed. cc: Carmita Parkinson MD
[2017-03-18] MEDS: ZOSYN 2.25 GM/NS 2.25 GM/50 ML IVPB IV SCH ×4 (02:45→19:29)
[2017-03-18] MEDS: HUMALOG SUBQ SCH ×4 (06:13→20:25)
[2017-03-18] MEDS ORDERED: HEPARIN IV PRN (07:26)
[2017-03-18] MEDS ORDERED: TIGHT: 0.2 ML/HR MISC PRN (07:26)
[2017-03-18] MEDS: VENOFER 200 MG in NS 150 ML IV SCH (08:16)
[2017-03-18 08:21] LABS: ALBUMIN 2.6 g/dL (3.5-5.0); CALCIUM 8.7 mg/dL (8.8-10.2); HEMATOCRIT 36.9 % (37.0-47.0); HEMOGLOBIN 12.2 g/dL (12.0-16.0); MCHC 33.1 g/dL (33-37); MCV 93.9 FL (81-99); POTASSIUM 4.2 mmol/L (3.5-5.1); RBC 3.93 XMIL (4.2-5.4)
[2017-03-18] MEDS: LASIX IV SCH ×2 (09:03→22:04)
[2017-03-18] MEDS ORDERED: HEPARIN ONE ×2 (10:03→15:10)
[2017-03-18] MEDS ORDERED: NS 250 ML ONE (10:03)
--- NOTE | 2017-03-18 10:38 | PROGRESS NOTE ---
DATE: 03/18/2017 SUBJECTIVE: Patient resting in bed. She is waiting to go to surgery to have a tunneled dialysis catheter placed. She has no shortness of breath. OBJECTIVE: Vital Signs: Temperature 97.8 degrees, pulse 40s, respiratory rate 19, blood pressure 115/41, intake 1.9 L. Output 1.2 L. PHYSICAL EXAMINATION: General: This is a elderly lady resting in bed. No acute distress. HEENT: Normocephalic, atraumatic. SHI, conjunctivae pink. Oral mucosa moist. Neck: Supple. She has positive JVD. Cardiovascular: Regular rate and rhythm. She remains bradycardic. Pulmonary: She has equal excursion. She has some rhonchi bilaterally. There is no crackle or wheeze. Abdomen: Soft, with positive bowel sounds. : Not inspected. She has a Billingsley catheter. Extremities: 2+ pretibial edema. No clubbing, cyanosis. Integumentary: Skin is warm and dry. No rash or lesion. She does have some mild swelling noted to the left upper chest wall. LAB DATA: Sodium 141, potassium 4.2, CO2 19, BUN 118, creatinine 5.9. ASSESSMENT AND PLAN: 1. Chronic kidney disease stage 5 now with renal failure. Unresponsive to diuretics and worsening renal function. The patient is to go for a tunneled dialysis catheter placement today. We will initiate dialysis. We will plan for a 2 K bath/2 L UF/two hour treatment on a slow flow of 250-350 mL a minute. We will plan to dialyze her over the next 2 days as well and then transition to a 3 day a week prescription. 2. Electrolytes. She is on a 2 K bath. Normal sodium bath. 3. Acid-base balance acceptable. Again, we will correct on dialysis. 4. Anemia. No labs this morning. She has received IV Venofer. 5. Volume status. She was still in positive territory. We will have a goal of 2 L removal today and adjust that as needed. Seen, data reviewed, discussed with Rebecca Gregg on 03/18/17. I agree with the above assessment and plan of care. rg Dictated by IGLESIA Wilson for Emerson Dumont MD cc: Emerson Dumont MD [facility]
[2017-03-18] MEDS ORDERED: XYLOCAINE 1% ONE (10:50)
[2017-03-18] MEDS ORDERED: DIPRIVAN 1% ONE (10:54)
[2017-03-18] MEDS: TEFLARO 300 MG in NS 250 ML IV SCH ×2 (11:37→22:48)
[2017-03-18] MEDS ORDERED: ROBINUL ONE (12:02)
[2017-03-18] MEDS ORDERED: EPHEDRINE ONE (12:02)
[2017-03-18] MEDS ORDERED: XYLOCAINE-MPF 2% ONE (12:03)
[2017-03-18] MEDS ORDERED: 1/2 NS 500 ML ONE (12:03)
--- NOTE | 2017-03-18 13:05 | OPERATIVE NOTE ---
PROCEDURE DATE: 03/18/2017 PREOPERATIVE DIAGNOSIS: End-stage renal disease, requiring chronic hemodialysis. POSTOPERATIVE DIAGNOSIS: End-stage renal disease, requiring chronic hemodialysis. PRINCIPAL PROCEDURE: Right internal jugular PermCath using ultrasound and fluoroscopy. SURGEON: Carmita Parkinson MD ANESTHESIA: General using an LMA in addition to local anesthetic. ESTIMATED BLOOD LOSS: 20 mL. DRAINS: None. INDICATIONS: Roma Alvarez is a 76-year-old Ethiopian female, who has end-stage renal disease and requires chronic hemodialysis. We were asked to place access. DESCRIPTION OF PROCEDURE: The patient was brought to the operating room, placed supine, received general anesthesia, and was ventilated using the LMA. Her right neck, shoulder, and anterior chest were prepped and draped within a sterile field. We used an Ioban on the skin. She has been on IV Zosyn. We used local anesthetic at our incision sites. We initially used ultrasound to identify the right internal jugular vein between the 2 heads of the right sternocleidomastoid muscle. We used an 18-gauge needle under ultrasound guidance to access the right internal jugular vein with an 18-gauge needle and then we placed a guidewire through this needle into the right side of the heart. The position of the guidewire was checked with fluoroscopy. We removed the needle. We made a counter incision on the anterior right chest and used a blunt tunneler to tunnel a precurved, 19 cm in total length PermCath from the chest incision to the neck incision. We placed sequential dilators over the guidewire, and then I placed a dilator and sheath over the guidewire into the superior vena cava. I removed the dilator and guidewire and through the sheath, I placed the distal end of our catheter and peeled away the sheath. The ports were functioning well. I flushed with heparin saline. I checked the position of the catheter with fluoroscopy and it was in good position and functioning well. I secured the catheter at its at its exit site anterior right chest with two 2-0 nylon stitches and I closed the skin with 4-0 Monocryl subcuticular stitch. Steri-Strips were applied, followed by dry dressing. Plans are for her to go to the recovery room, be readmitted. cc: Carmita Parkinson MD
[2017-03-18] MEDS ORDERED: NS 2,000 ML ONE (15:10)
--- NOTE | 2017-03-18 15:52 | PROGRESS NOTE ---
DATE: 03/18/2017 SUBJECTIVE: This patient looks more alert and oriented today. She is status post right internal jugular PermCath. She tolerated good the procedure and now she is going to receive for the very 1st time dialysis. She denies nausea, vomiting, no diarrhea, no constipation. No chest pain. No shortness of breath. OBJECTIVE: Vital Signs: Temperature 97.5 degrees, pulse 55, respiratory rate 14, blood pressure 101/57, oxygen saturation 93 on 2 L of nasal cannula. HEENT: Head normocephalic. No trauma. PERRLA. Neck: Supple. No JVD. No masses. Central trachea. Cardiovascular: RRR. Bradycardic. Chest: Decreased breath sounds at the bases, there is a new catheter at the level of the right upper thorax. Abdomen: Soft, protuberant. Mild tenderness to palpation at the level of the periumbilical area. Positive bowel sounds. Extremities: Patient has a right BKA and left lower extremity she has some redness at the level of the anterior leg. Neurological: The patient is alert and oriented x3. No focal deficits. LABORATORY: WBC 5.9, hemoglobin 12.2, hematocrit 36.9, platelet 140,000. Sodium 141, potassium 4.2, chloride 100, bicarbonate 19, BUN 118, creatinine 5.9, glucose 70, calcium 8.7, phosphorus 7.9, albumin 2.6. ASSESSMENT AND PLAN: 1. Fluid overload likely secondary to acute on chronic kidney disease. This is end-stage renal disease. She is status post PermCath placement on the right side of the chest, right internal jugular. She will have dialysis today. 2. End-stage renal disease as above. 3. Left lower extremity cellulitis. Continue with antibiotics. We have a positive culture result for Staphylococcus epidermidis but this 1 could be a contaminant, she is getting better. 4. Sinus bradycardia. Continue to monitor. Asymptomatic. 5. Diastolic heart failure. Continue with diuresis/dialysis. 6. Type 2 diabetes. Continue with the same management. Stable. 7. Chronic obstructive pulmonary disease not in exacerbation at this moment. We will monitor. CRITICAL CARE TIME: 35 minutes. cc: Salomon Garcia MD
[2017-03-18] MEDS: NS 2,000 ML MISC PRN ×2 (16:48→17:02)
[2017-03-19] MEDS: ZOSYN 2.25 GM/NS 2.25 GM/50 ML IVPB IV SCH ×4 (01:25→19:19)
[2017-03-19 04:45] LABS: MANUAL DIFF NEEDED? NO
[2017-03-19 04:48] LABS: BASO% 0.5 % (0.0-0.8); EOS# 0.11 X1000 (0.0-0.7); EOS% 1.4 % (0.0-10.0); HEMATOCRIT 34.7 % (37.0-47.0); HEMOGLOBIN 11.6 g/dL (12.0-16.0); LYMPH# 0.56 X1000 (1.2-3.4); LYMPH% 7.4 % (20.5-51.1); MCH 30.6 PG (27-31); MCHC 33.4 g/dL (33-37); MCV 91.6 FL (81-99); MONO# 1.21 X1000 (0.11-0.59); MONO% 15.9 % (1.7-9.3); MPV 11.8 FL (7.4-10.4); NEUT% 74.8 % (42.2-75.2); PLT 162 X1000 (130-400); RBC 3.79 XMIL (4.2-5.4)
[2017-03-19 05:37] LABS: ALBUMIN 2.8 g/dL (3.5-5.0); CALCIUM 8.3 mg/dL (8.8-10.2); POTASSIUM 3.9 mmol/L (3.5-5.1)
[2017-03-19] MEDS: HUMALOG SUBQ SCH ×4 (06:10→21:25)
[2017-03-19] MEDS ORDERED: NS 2,000 ML MISC PRN (07:32)
[2017-03-19] MEDS ORDERED: HEPARIN IV PRN (07:32)
[2017-03-19] MEDS ORDERED: TIGHT: 0.2 ML/HR MISC PRN (07:32)
[2017-03-19] MEDS: VENOFER 200 MG in NS 150 ML IV SCH (08:32)
[2017-03-19] MEDS ORDERED: NS 2,000 ML ONE (09:01)
[2017-03-19] MEDS ORDERED: HEPARIN ONE (09:02)
[2017-03-19 12:16] LABS: HEPATITIS PROFILE ACUTE SEE COMMENTS
[2017-03-19] MEDS: LASIX IV SCH ×2 (13:05→21:26)
[2017-03-19] MEDS: TEFLARO 300 MG in NS 250 ML IV SCH ×2 (13:16→22:45)
--- NOTE | 2017-03-19 13:32 | PROGRESS NOTE ---
DATE: 03/19/2017 SUBJECTIVE: Patient resting in bed. She is waiting to go to dialysis. She has no complaints this morning. OBJECTIVE: Vital Signs: Temperature 98.2 degrees, pulse 51, respiratory rate 19, blood pressure 127/41. Intake 1 L, output 2.9 L. PHYSICAL EXAMINATION: General: This is a elderly female resting in bed. She is awake, alert, no acute distress. HEENT: Normocephalic, atraumatic. Oral mucosa moist. Conjunctivae are pink. Neck: Supple. She has trace JVD. Cardiovascular: Regular rate and rhythm. Remains bradycardic but improved. Pulmonary: Equal excursion. She is clear bilaterally today. She has no increased work of breathing. Abdomen: Soft, positive bowel sounds. : Not inspected. Billingsley catheter. Extremities: She has 1+ pretibial edema. Right BKA noted. No clubbing, cyanosis. Integumentary: Skin is warm and dry without rash or lesion. She has a tunneled dialysis catheter noted to the right upper chest wall with insertion site clean, dry, and intact. LAB DATA: WBC of 7.6, hemoglobin 11.6. Sodium 141, potassium 3.9, CO2 20, BUN 68, creatinine 4.5, calcium 8.3, phosphorus 6.6, albumin 2.8. ASSESSMENT AND PLAN: 1. Chronic kidney disease stage 5 now with renal failure requiring dialysis. Today will be her 2nd dialysis treatment. We will plan on a 3 K bath/2-3 L UF removal/3 hour treatment on low- flow again at 250-350 a minute. Tomorrow if she does well will transition her over to a regular dialysis treatment. 2. Electrolytes, acid-base balance, anemia. These have been stable. We will continue to treat appropriately on dialysis. 3. Volume status. She is in negative territory overnight and again will attempt to achieve a goal of 2-3 L removal. Seen, data reviewed, discussed with Rebecca Gregg on 03/19/17. I agree with the above assessment and plan of care. rg Dictated by IGLESIA Wilson for Emerson Dumont MD cc: Emerson Dumont MD [facility]
[2017-03-19] MEDS ORDERED: BLISTEX MEDICATED BERRY LIP BALM TOP PRN (17:13)
--- NOTE | 2017-03-19 18:00 | PROGRESS NOTE ---
DATE: 03/19/2017 SUBJECTIVE: This patient is alert and oriented x3. She received dialysis today again and is tolerating that. She denies nausea, vomiting, diarrhea, constipation. Her left lower extremity cellulitis looks much better. OBJECTIVE: Vital Signs: Temperature 98 degrees, pulse 53, respiratory rate 14, blood pressure 124/44, O2 saturation 92% on room air. HEENT: Head normocephalic. No trauma. PERRLA. Neck: Supple. No JVD. No masses. Central trachea. Cardiovascular: RRR. Bradycardic. Chest: Decreased breath sounds at the bases. There is a new catheter at the level of the right upper thorax. Abdomen: Soft, protuberant, mild tenderness to palpation at the level of the epigastric and periumbilical area. Positive bowel sounds. Extremities: Patient has a right BKA, and left lower extremity has mild redness and a small pretibial wound. Neurological: The patient is alert and oriented x3. No focal deficits. LABORATORY: WBC 7.6, hemoglobin 11.6, hematocrit 34.7, platelets 162,000. Sodium 141, potassium 3.9, chloride 100, bicarbonate 20, BUN 64, creatinine 4.5, glucose 115, calcium 8.3, phosphorus 6.6, albumin 2.8. ASSESSMENT AND PLAN: 1. Fluid overload likely secondary to acute on chronic kidney disease. This is end-stage renal disease now. She is status post PermCath placement on the right side of the chest, right internal jugular, and she has been dialyzed today. Will monitor. 2. End-stage renal disease as above. 3. Left lower extremity cellulitis. This is looking much better, we will continue with the same management for now. We have a positive culture result for the Staphylococcus epidermidis at the level of the leg. 4. Sinus bradycardia. Continue to monitor. Asymptomatic. 5. Diastolic heart failure. Continue with diuresis/dialysis. 6. Type 2 diabetes. Continue with the same management. Stable. 7. Chronic obstructive pulmonary disease, not in exacerbation. CRITICAL CARE TIME: 35 minutes. cc: Salomon Garcia MD
[2017-03-20] MEDS: ZOSYN 2.25 GM/NS 2.25 GM/50 ML IVPB IV SCH ×4 (02:17→20:49)
[2017-03-20 04:42] LABS: MCH 30.6 PG (27-31); MCHC 32.4 g/dL (33-37); MCV 94.4 FL (81-99); MPV 11.5 FL (7.4-10.4); RBC 3.6 XMIL (4.2-5.4)
[2017-03-20 05:12] LABS: CALCIUM 8.4 mg/dL (8.8-10.2); POTASSIUM 3.8 mmol/L (3.5-5.1)
[2017-03-20 05:33] LABS: POTASSIUM 3.7 mmol/L (3.5-5.1)
[2017-03-20] MEDS: HUMALOG SUBQ SCH ×3 (07:02→15:12)
[2017-03-20] MEDS ORDERED: NS 2,000 ML MISC PRN (07:39)
[2017-03-20] MEDS ORDERED: TIGHT: 0.2 ML/HR MISC PRN (07:39)
[2017-03-20] MEDS ORDERED: HEPARIN IV PRN (07:39)
[2017-03-20] MEDS: VENOFER 200 MG in NS 150 ML IV SCH (08:19)
[2017-03-20] MEDS ORDERED: HEPARIN ONE (09:12)
[2017-03-20] MEDS ORDERED: NS 2,000 ML ONE (09:12)
--- NOTE | 2017-03-20 11:18 | PROGRESS NOTE ---
DATE: 03/20/2017 SUBJECTIVE: She is sitting up. She is talkative but confused. She ate about 30% of her breakfast. OBJECTIVE: Vital Signs: Blood pressure 151/60, heart rate 53, respirations 20, afebrile. General: She is an elderly woman, sitting at 45 degrees, no distress. Skin: Warm and dry. HEENT: Conjunctivae are pink. Pupils are equal. Neck: Neck veins are not distended. Heart: Regular with a systolic murmur present. Lungs: Have equal breath sounds. No crackles or wheezes. Abdomen: Soft, nontender. Bowel sounds present. Extremities: Have no edema, clubbing, or cyanosis. IMPRESSIONS: 1. End-stage kidney disease. She will have her third consecutive treatment today. We will subsequently fall in to a 3 time a week treatment plan. 2. Electrolytes, in target next. 3. Volume status, acceptable. Stop Lasix. Remove Billingsley. 4. Anemia, in target. 5. Confusion. She is not ready for discharge. cc: Emerson Dumont MD
[2017-03-20] MEDS: TEFLARO 300 MG in NS 250 ML IV SCH (13:06)
--- NOTE | 2017-03-20 15:34 | PROGRESS NOTE ---
DATE: 03/20/2017 SUBJECTIVE: This patient is alert. She is disoriented today. She is oriented in person, but she is not oriented in time or place. She is confused. She believes she is in [place]. Otherwise, she is feeling fine. OBJECTIVE: Vital Signs: Temperature 97.7 degrees, pulse 54, respiratory rate 13, blood pressure 159/58, oxygen saturation 91% on room air. HEENT: Head normocephalic. No trauma. PERRLA. Neck supple. No JVD. No masses. Central trachea. Cardiovascular: RRR. Bradycardic. Chest: Decreased breath sounds at the bases. There is a new catheter at the level of the right upper thorax. Abdomen is soft, protuberant, nontender, nondistended. No hepatosplenomegaly. Positive bowel sounds. Extremities: There is a right BKA and the left lower extremity has mild redness with a small pretibial wound but, compared with yesterday, it is much better; almost resolved. Neurologic: The patient is alert and oriented x3. No focal deficit. LABORATORY: WBC 5.6, hemoglobin 11, hematocrit 34, platelets 144,000. Sodium 144, potassium 3.8, chloride 103, bicarbonate 25. BUN 28, creatinine 2.8, glucose 131. Calcium 8.4. Albumin 3. ASSESSMENT AND PLAN: 1. Fluid overload likely secondary to acute kidney injury/[id number] kidney disease. This patient meets criteria for end-stage renal disease. She has status post PermCath placement on the right side of the chest, right internal jugular. She has been dialyzed for the past 2 days and, today, she is getting dialysis again. Since this patient is much better, she will be transferred to the medical floor. 2. End-stage renal disease, as above. 3. Left lower extremity cellulitis. This is looking much better, almost resolved. We will continue with the same management. 4. Sinus bradycardia. Continue to monitor. Asymptomatic. 5. Diastolic heart failure. Continue with dialysis. 6. Type 2 diabetes. Continue with the same management. Stable. 7. Chronic obstructive pulmonary disease, not in exacerbation. I had a conversation with her daughter today. She states that they do not want their mom to go to a rehab center. They want to take this patient home with home health and physical therapy. cc: Salomon Garcia MD
[2017-03-20] MEDS: TYLENOL PO PRN (17:24)
[2017-03-20 19:54] LABS: CALCIUM 7.9 mg/dL (8.8-10.2); MAGNESIUM 1.8 mg/dL (1.5-2.7); POTASSIUM 3.5 mmol/L (3.5-5.1)
[2017-03-21] MEDS: TEFLARO 300 MG in NS 250 ML IV SCH ×2 (01:55→13:34)
[2017-03-21] MEDS: ZOSYN 2.25 GM/NS 2.25 GM/50 ML IVPB IV SCH ×2 (04:02→09:12)
[2017-03-21] MEDS: HUMALOG SUBQ SCH ×3 (05:26→11:24)
[2017-03-21] MEDS: VENOFER 200 MG in NS 150 ML IV SCH (09:54)
--- NOTE | 2017-03-21 16:24 | PROGRESS NOTE ---
DATE: 03/21/2017 SUBJECTIVE: She is feeling well today. She has been able to eat. Her confusion is improved. No shortness of breath. OBJECTIVE: Vital Signs: Blood pressure 168/60, heart rate 54, respiration 18, afebrile. General: She is in no acute distress. Skin: Warm and dry. HEENT: Conjunctivae are pink. Pupils are equal. Neck: Neck veins are not distended. Heart: Regular. Lungs: Equal. Abdomen: Soft, nontender. Bowel sounds present. Extremities: Have no edema, clubbing, or cyanosis. LABORATORY DATA: No new data today. IMPRESSION: 1. End-stage kidney disease. She has responded well to dialysis. Her outpatient dialysis plan has been arranged and she will initiate her treatment at the clinic later this week. 2. Electrolytes/acid base in target. 3. Anemia in target. She is receiving IV iron. 4. Hypertension. Acceptable. cc: Emerson Dumont MD
[2017-03-21 16:51] VITALS: BP 176/61
--- NOTE | 2017-03-21 18:17 | DISCHARGE SUMMARY ---
ADMISSION DATE: 03/14/2017 DISCHARGE DATE: 03/21/2017 DISCHARGE DIAGNOSES: 1. Fluid overload. 2. End-stage renal disease on hemodialysis. 3. Left lower extremity cellulitis/resolved. 4. Sinus bradycardia, asymptomatic. Diastolic heart failure. 5. Type 2 diabetes. 6. COPD not in exacerbation. CONSULTATION: 1. Nephrology Department, Cardiology Department, and Surgery Department. HISTORY: A 76-year-old female with a history of CHF, coronary artery disease, diabetes and COPD who presented to the emergency department with family members complaining of generalized weakness and left lower extremity edema and pain. She was admitted on 03/14/2017. According to the family, the patient has been complaining of left lower extremity pain and swelling, and some altered mental status. On presentation to the emergency room, she had a heart rate of 89 but then decreased to the 40s. She was given atropine twice, and no change in the heart rate. Also, her potassium was 5.9, and BUN 107, creatinine 4. Billingsley catheter was placed and she was transferred to the intensive care unit. Nephrology was consulted. They tried a high dose of Lasix to remove her fluid overload. Cardiology also was consulted but basically all of these problems secondary to CKD. Actually, nephrology department states that this patient now is an end-stage renal disease patient. They placed this patient on hemodialysis, a tunnel catheter was placed for dialysis on the right side of the chest. This patient received 3 dialysis, she tolerated the dialysis fine. During the course of her hospitalization, she was confused but today he she is completely alert and oriented x3. No focal deficits. She was placed on antibiotics because of the left lower extremity cellulitis. Today, there are no signs of infection. There is no pain or swelling. This is why we decided to discharge this patient with strict followup by her primary care doctor in [address] Perez. She will continue with dialysis. She is going to start dialysis this Saturday. Her schedule is going to be Saturday, , and Saturday at 11:30 in the morning. All of this information was provided to the patient and her son. DISCHARGE MEDICATIONS: 1. Acetaminophen 650 mg p.o. q.6 hours as needed. 2. Gabapentin 100 mg p.o. 3 times a day as needed. 3. Hydralazine 25 mg p.o. 3 times a day. 4. Isosorbide dinitrate 10 mg p.o. 3 times a day. 5. [place] 5 1 tablet every 8 hours p.r.n. DISCHARGE EXAMINATION: Vital signs: Temperature 97.9 degrees, pulse 58, respiratory rate 17, and blood pressure 176/61, oxygen saturation 97% on room air. HEENT: Head normocephalic. No trauma. PERRLA. Neck: Supple. No JVD. No masses. Central trachea. Chest on the right side there is a catheter that was recently placed. Lungs: Clear to auscultation. No wheezing. No rales. Abdomen: Soft, nontender, nondistended. No hepatosplenomegaly. Extremities: She has a right BKA. Left lower extremity without edema or signs of infection. Neurological: The patient is alert and oriented x3. No focal deficits. LABORATORY: No lab work today. TIME SPENT: Time discharging this patient 35 minutes. cc: Salomon Garcia MD
== END 2017-03-21 16:15 | disposition home health service (06) ==
LOC: SUPCPDRO → P.ED 14:42 → ICU 20:20 → SUATTDRO 20:20 → 3N 03-20 17:49
PROVIDERS: ATTEND Internal Medicine

== ENCOUNTER 2017-04-01 22:48 | Inpatient (IN) ==
[2017-04-01 23:13] LABS: MANUAL DIFF NEEDED? NO
[2017-04-01 23:17] LABS: BASO% 0.2 % (0.0-0.8); EOS# 0.12 X1000 (0.0-0.7); EOS% 1.4 % (0.0-10.0); HEMATOCRIT 34.9 % (37.0-47.0); HEMOGLOBIN 11.8 g/dL (12.0-16.0); IMM GRAN# 0.02 X1000 (0.0-0.04); IMM GRAN% 0.2 % (0.0-0.5); LYMPH# 1.27 X1000 (1.2-3.4); LYMPH% 14.6 % (20.5-51.1); MCH 31.3 PG (27-31); MCHC 33.8 g/dL (33-37); MCV 92.6 FL (81-99); MONO# 0.89 X1000 (0.11-0.59); MONO% 10.3 % (1.7-9.3); MPV 11.4 FL (7.4-10.4); NEUT% 73.3 % (42.2-75.2); PLT 172 X1000 (130-400); RBC 3.77 XMIL (4.2-5.4)
[2017-04-01 23:19] LABS: URINE CULTURE NEEDED? NO; URINE SOURCE CLEAN CATCH
[2017-04-01 23:22] LABS: BILIRUBIN URINE NEGATIVE (NEGATIVE); BLOOD URINE NEGATIVE (NEGATIVE); COLOR YELLOW; GLUCOSE URINE 200 mg/dL (NEGATIVE); LEUKOCYTES URINE NEGATIVE (NEGATIVE); NITRITE URINE NEGATIVE (NEGATIVE); PH URINE 6.5; PROTEIN URINE 300 mg/dL (NEGATIVE); SP GRAVITY URINE 1.014; TURBIDITY URINE CLEAR (CLEAR); URINE MICRO REVIEW NEEDED? YES; UROBILINOGEN URINE NORMAL (NORMAL)
[2017-04-01 23:26] LABS: UR EPITHELIAL CELLS <10 /HPF (<10); URINE BACTERIA NEGATIVE /HPF; URINE RBC <10 /HPF (<10); URINE WBC <10 /HPF (<10)
[2017-04-01 23:30] LABS: ALBUMIN 3.2 g/dL (3.5-5.0); CALCIUM 9.1 mg/dL (8.8-10.2); POTASSIUM 4.6 mmol/L (3.5-5.1); TOTAL BILIRUBIN 0.71 mg/dL (0.20-1.00); TOTAL PROTEIN 7.1 g/dL (6.3-8.3)
[2017-04-01 23:46] LABS: URINE CASTS NONE SEEN; URINE CRYSTALS NONE SEEN; URINE SMALL ROUND CELLS NONE SEEN
[2017-04-01] MEDS ORDERED: TYLENOL PO ONE (23:50)
[2017-04-02] MEDS ORDERED: VANCOMYCIN 1 GM/NS 1 GM/250 ML IVPB IV ONE (02:03)
[2017-04-02] MEDS ORDERED: ZOFRAN IV PRN (04:48)
[2017-04-02] MEDS ORDERED: NORCO-10 PO PRN (04:48)
[2017-04-02] MEDS ORDERED: VANCOMYCIN IV PER PHARMACY MISC SCH (04:48)
[2017-04-02] MEDS: HUMALOG SUBQ SCH ×4 (04:48→21:44)
[2017-04-02] MEDS ORDERED: TYLENOL ONE (08:40)
[2017-04-02] MEDS: TYLENOL PO PRN ×2 (08:44→13:22)
[2017-04-02] MEDS: APRESOLINE PO SCH ×3 (08:49→16:22)
[2017-04-02] MEDS: ASPIRIN PO SCH (08:53)
[2017-04-02] MEDS: HEPARIN SUBQ SCH ×2 (08:53→21:43)
[2017-04-02] MEDS: NEURONTIN PO SCH ×3 (08:54→16:22)
[2017-04-02] MEDS: ISORDIL PO SCH ×3 (08:54→16:22)
[2017-04-02] MEDS ORDERED: VANCOMYCIN 1 GM/NS 1 GM/250 ML IVPB IV SCH (12:00)
[2017-04-02] MEDS: ZOSYN 2.25 GM/NS 2.25 GM/50 ML IVPB IV SCH ×2 (13:23→21:43)
[2017-04-02] MEDS ORDERED: MAXIPIME 1 GM/NS 1 GM/50 ML IVPB IV SCH (14:00)
[2017-04-02] MEDS ORDERED: DIFLUCAN PO SCH (15:00)
[2017-04-03 06:28] LABS: MANUAL DIFF NEEDED? NO
[2017-04-03] MEDS: HUMALOG SUBQ SCH ×3 (06:34→16:13)
[2017-04-03 06:43] LABS: BASO% 0.2 % (0.0-0.8); EOS# 0.06 X1000 (0.0-0.7); EOS% 0.7 % (0.0-10.0); HEMATOCRIT 33.6 % (37.0-47.0); HEMOGLOBIN 10.9 g/dL (12.0-16.0); IMM GRAN# 0.02 X1000 (0.0-0.04); IMM GRAN% 0.2 % (0.0-0.5); LYMPH# 1.03 X1000 (1.2-3.4); MCH 30.7 PG (27-31); MCHC 32.4 g/dL (33-37); MCV 94.6 FL (81-99); MONO# 0.82 X1000 (0.11-0.59); MONO% 9.5 % (1.7-9.3); MPV 11.8 FL (7.4-10.4); NEUT% 77.4 % (42.2-75.2); PLT 159 X1000 (130-400); RBC 3.55 XMIL (4.2-5.4)
[2017-04-03] MEDS: VANCOCIN PO SCH ×4 (06:47→20:53)
[2017-04-03 07:04] LABS: CALCIUM 8.8 mg/dL (8.8-10.2); POTASSIUM 4.3 mmol/L (3.5-5.1)
[2017-04-03] MEDS: ISORDIL PO SCH ×3 (09:08→16:20)
[2017-04-03] MEDS: APRESOLINE PO SCH ×3 (09:09→16:19)
[2017-04-03] MEDS: HEPARIN SUBQ SCH ×2 (09:09→20:53)
[2017-04-03] MEDS: NEURONTIN PO SCH ×3 (09:09→16:20)
[2017-04-03] MEDS: ASPIRIN PO SCH (09:09)
--- NOTE | 2017-04-03 10:27 | PROGRESS NOTE ---
DATE: 04/02/2017 SUBJECTIVE: She was admitted under [place]. Apparently put over here because of fever and chills. Suspect line sepsis from line bacteremia. I do not have much in the way of past medical history. She looks comfortable at the present time. She is complaining of some pain in the left posterior heel. EXAM: General: Otherwise she was sleeping. Easy to arouse. Vital Signs: Temperature 100.3, pulse 66, respirations 17, blood pressure 121/73. HEENT: Pupils are equal, round. CVP less than 6 cm. Lungs: Clear in all lung beck. Cardiovascular: Regular rate without murmur or S3. Abdomen: Soft. Skin: Warm and dry. Height 5 feet 7 inches. LABS: Blood sugar 129, 163. Lab from the 3rd reviewed, from yesterday. White count 8670, hematocrit 34, platelet count 172. Sodium 139, potassium 4.6, chloride 100, BUN 63, creatinine 4.9, albumin 3.2. Urinalysis unremarkable. MEDICATIONS: Review of her ambulatory medications, she is on Neurontin 100 mg t.i.d., Apresoline 25 mg t.i.d., hydrocodone 10-325 one q.6 hours, dinitrate at 10 mg p.o. t.i.d. ASSESSMENT AND PLAN: 1. We will continue antibiotics and get 1 g of vancomycin after dialysis. Dr. Dumont has consulted. Dr. Charles has consulted. We are trying to obtain some more past medical history. Not sure if we are going to have to discontinue this line and then consider what we need to do for IV access. 2. It appears that she has a history of peripheral vascular disease. cc: Ajit Whitley MD
--- NOTE | 2017-04-03 10:34 | CONSULTATION ---
DATE OF CONSULTATION: 04/02/2017 REASON FOR CONSULTATION: 1. End stage renal disease. 2. Catheter sepsis. HISTORY OF PRESENT ILLNESS: Ms. Nielson is a 77-year-old, woman her other name is Roma Alvarez and she was recently admitted under that name. She has: 1. Diabetes. 2. Hypertension. 3. Peripheral vascular disease. 4. End-stage kidney disease. She was recently started on hemodialysis using a tunneled dialysis catheter after presenting to the hospital overtly uremic. She returned to the emergency room today. There are no reports and the family is not present. She is somnolent and can be aroused, but was nonverbal. PAST MEDICAL HISTORY: As above. HOME MEDICATIONS: Include: 1. Hydralazine. 2. Gabapentin. 3. Isosorbide. 4. Hydrocodone. ALLERGIES: None. SOCIAL HISTORY: She is normally attended by her extended family, especially her son. FAMILY HISTORY: Otherwise not available. REVIEW OF SYSTEMS: Otherwise not available. PHYSICAL EXAMINATION: Vitals: Temperature 100.3 degrees, T-max was 102.3 degrees, blood pressure 121/37, heart rate 66, respirations 17. General: Mental status as above. No distress. Skin: Warm and dry. Conjunctivae are pink. Pupils are equal. Oropharynx is dry. Neck: Neck veins are not distended. A tunnel catheter exit site and tunnel are nontender and there is no expressible discharge. Heart: Regular with an early systolic murmur. No gallops. Lungs: Have equal breath sounds. No crackles. Abdomen: Soft, nontender. Bowel sounds present. No organomegaly. Extremities: Have no edema, clubbing, or cyanosis. LABORATORY DATA: Are reviewed. IMPRESSION: 1. Altered mental status. Likely secondary to bacteremia. 2. Fever. Likely from catheter sepsis. 3. End stage renal disease. Today is her normal dialysis day. She has no acute indications, so we will wait and to her dialysis tomorrow. PLAN: I will dose her vancomycin and she will need also gram negative coverage. If she does not respond promptly, her catheter may need to be removed. cc: MD JESSEE Dolan
--- NOTE | 2017-04-03 10:40 | HISTORY AND PHYSICAL ---
REASON FOR ADMISSION: Fever and fatigue yesterday. Patient of Dr. Dumont and Dr. Anders Perez. HISTORY OF PRESENT ILLNESS: Roma Alvarez is a 77-year-old lady with a past medical history of hypertension, coronary artery disease, type 2 diabetes complicated with end- stage kidney disease, status post right BKA. She just commenced dialysis about a week ago and according to the family, she had been doing rather well up until after dinner yesterday. They noticed that she was unusually drowsy and sleepy. They then put her to bed and slept for 3 hours and then she had a temperature spike of 103. Because of this, they brought her to the ER to be evaluated. She denies any nausea, vomiting, diarrhea, cough, chest pain, genitourinary complaints. No pain anywhere. No rash. On arrival to the ER, vital signs showed a temperature of 100.5 degrees, heart rate was 77, respirations of 17, blood pressure was 189/88, and 95% on room air. Most of the history was obtained from the grandson and son as the patient does not speak Kiswahili. Oddly enough, when patient was asked again about how she felt, she says she feels fine. REVIEW OF SYSTEMS: Fourteen system review of systems was essentially negative. She denied any pain at the site of her Vas-Cath placement. Review of systems nil of note. Positive findings per HPI. No chills. Family denied any altered mental status. ALLERGIES: None. MEDICATIONS: She is on Neurontin 100 mg t.i.d., hydralazine 25 mg b.i.d., hydrocodone 7.5 mg q.6 p.r.n., isosorbide 10 mg t.i.d. FAMILY HISTORY: Notable for type 2 diabetes, heart disease, and ESRD. SURGICAL HISTORY: Right BKA, CABG, and bilateral knee surgery. SOCIAL HISTORY: She does not smoke, drink, or use drugs. Lives with her family. LABORATORY WORK: White count 8000, hemoglobin and hematocrit 11 and 35, platelets 172,000, neutrophils 73%. BUN 63, creatinine 4.9, glucose 159. Alkaline phosphatase 164 , lactate 1.1. Urinalysis is clean. Chest x-ray is grossly negative for any infiltrate. PHYSICAL EXAMINATION: GENERAL: Elderly, woman who is not in acute distress. She is lying comfortably in bed. She is alert and oriented to person and time with normal mood and affect. HEENT: Head is normocephalic. Eyes: SHI, EOMI. She is anicteric, not pale. ENT and oropharynx exam is grossly normal. NECK: Supple. No JVD. No carotid bruit. No thyromegaly. CHEST: Clear to auscultation. Good air entry in both lung beck. CARDIOVASCULAR: First and sounds heart sounds heard. A 3/6 ejection systolic murmur heard loudest in the aortic area. Rhythm is regular. No gallops. ABDOMEN: Full, soft, nontender. No mass or organomegaly. Bowel sounds are hypoactive. RECTAL: Examination deferred at this time. EXTREMITIES: The patient has a right BKA with a prosthetic leg in place. Her left lower extremity shows chronic hyperemia of the finley area which is, per the family, unchanged. She also has a stage I left heel decubitus. Pulses in her distal left lower extremity are intact with good volume and distal upper extremities are intact also. No clubbing or peripheral cyanosis. NEUROLOGIC: No focal deficits. SKIN: See above. Otherwise grossly normal. MUSCULAR: Examination is grossly normal otherwise. ASSESSMENT: 1. Fever, (?) central venous catheter infection. 2. End-stage kidney disease. 3. Type 2 diabetes. 4. Coronary artery disease. 5. Hypertension. 6. Anemia of chronic kidney disease. PLAN: At this time, the patient was given 1 dose of vancomycin. The only source at this point in time may be the central venous catheter. Blood cultures will be drawn from that site before dialysis. Her dialysis sessions are usually Saturday, , and Saturday. We will consult Dr. Dumont and consult Dr. Emery Charles. Follow up blood cultures. If this is persistent, consider doing an echocardiogram. In the meantime, her diabetes will be managed with Humalog with low sliding scale. Consider starting patient on an STELLA inhibitor or ARB for the hypertension if not controlled properly. Start patient on a baby aspirin due to her history of coronary artery disease Since there is no overt contraindication. DVT prophylaxis will be done with subcutaneous heparin. cc: MD Richard Orozco MD [facility]
--- NOTE | 2017-04-03 10:52 | CONSULTATION ---
DATE OF CONSULTATION: 04/02/2017 CONCLUSION: The consult I received is for Roma Alvarez but there has been some mixup and when I put in the request for a face sheet, the name that comes up his Roma Nielson instead of Roma Alvarez and, unfortunately, because of this mixup, I cannot pull up any prior history, laboratory, or radiographic results on the patient. As mentioned above, I unable to pull up any data on this patient. I was told by the nurse that the patient is thought to have an infection although why that thought came up and what any symptoms are is not known. The patient, unfortunately, cannot speak Syriac and no family member is present. I am assuming that the patient does have an infection and already I think blood cultures have been drawn. The urinalysis did show yeast, so the patient appears to have a fungal urinary tract infection. She is a dialysis patient and, thus, a bacteremia originating from her dialysis catheter certainly is a possibility. She is on a combination of vancomycin and Zosyn. RECOMMENDATIONS: The vancomycin has been ordered to be given after each dialysis. The Zosyn is given every 8 hours. I have ordered that tomorrow's Zosyn should be stopped at 6:00 a.m. and the patient should get cefepime a gram IV after each dialysis. Also, I am going to go ahead and start the patient on micafungin in view of the fact that she does have yeast in her urine. Whether this is the cause of her infection or whether it is asymptomatic is not known at this time. The data that I do have on the patient shows that her CBC has a white count of 8670, hemoglobin 11.8, and platelet count 172,000. Liver function studies are normal except for an alkaline phosphatase of 164. Urinalysis shows no white cells and no bacteria but yeast is present. The patient is on a combination of vancomycin and Zosyn at this time. PHYSICAL EXAMINATION: Vital Signs: Temperature is 100.3 degrees, pulse 66, respirations 17, blood pressure 121/37. Generally: This is an ill-appearing, elderly female, who is in no acute distress. Head, eyes, ears, nose, and throat: The patient is wearing dentures. There is no drainage coming from the nose or ears. She was able to hear me, and she appeared to be able to see near objects. Neck: No meningismus. Thorax: The patient had a right-sided dialysis catheter in place in the subclavian position. Lungs: Clear to auscultation. Cardiovascular: Regular heart rate. Abdomen: Soft and nontender. Extremities: Patient has a right below-the- knee amputation. She has an incision over her left knee that is fully healed. It is not erythematous and it is not draining. She does have a left heel decubitus ulcer. The superficial layer of skin is not present. Underneath it is a brownish-black eschar. Neurologic: Patient is awake. She could move her extremities. There was no tremor. Integument: No rash noted. Thank you for the consult. cc: Emery Charles MD
--- NOTE | 2017-04-03 12:07 | Diag Imaging Result Doc PS360 ---
EXAM: US RENAL 2 (RETROPER) COMPLETE INDICATION: elevated creatinine TECHNIQUE: COMPARISON: 11/23/2016 FINDINGS: The renal cortical echotexture is increased bilaterally, which is a nonspecific indicator of medical renal disease. There is no discrete renal mass or hydronephrosis. The right kidney measures 9.6 cm and the left kidney measures 9.8 cm in the greatest longitudinal axes. The right renal cortex measures up to 9 mm in the left renal cortex measures up to 7 mm in thickness. The urinary bladder is grossly unremarkable. IMPRESSION: Bilateral increased renal cortical echotexture, which is a nonspecific indicator of medical renal disease. Electronically signed by Vikas Toro 04/03/2017 12:04 PM
--- NOTE | 2017-04-03 14:41 | Diag Imaging Result Doc PS360 ---
EXAM: CHEST-2 VIEWS INDICATION: FEVER TECHNIQUE: 2 views COMPARISON: 03/14/2017 FINDINGS: A right Vas-Cath is in place. The tip projects over the lower SVC in the expected position. Inspiration is suboptimal. This is causing central vascular crowding. There is probably a component of pulmonary venous congestion similar to the previous study. There is no new consolidation. There is no evidence of pneumothorax. There is stable cardiomegaly. IMPRESSION: 1.Interval placement of right Vas-Cath with no evidence of pneumothorax. 2.Suggestion of possible mild pulmonary venous congestion. Electronically signed by Vikas Toro 04/03/2017 2:39 PM
--- NOTE | 2017-04-03 17:44 | PROGRESS NOTE ---
DATE: 04/03/2017 PRESENT ILLNESS: The patient has Clostridium difficile diarrhea. MEDICATIONS: She is receiving vancomycin 125 mg p.o. every 6 hours. PHYSICAL EXAMINATION: Vital Signs: Temperature is 98.2 degrees, pulse 60, respirations 17, blood pressure 156/99. General: This is a somewhat ill-appearing, elderly female. She is in no acute distress. Chest: The patient has a right-sided dialysis catheter in place. The site is not erythematous or swollen. Lungs: Clear to auscultation. Cardiovascular: Regular heart rate. Abdomen: Soft and nontender. Neurologic: The patient is alert. She can move her extremities. LABORATORY AND X-RAY: CBC shows a white count of 8600, hemoglobin 10.6, and platelet count 159,000. Creatinine is 4.8. GFR is 9. Renal ultrasound shows findings consistent with bilateral medical renal disease. ASSESSMENT AND PLAN: 1. The patient has Clostridium difficile diarrhea. I would suggest treating the patient with vancomycin 125 mg p.o. every 6 hours for a total of 14 days. If this cannot be obtained, then I would suggest treating the patient with Flagyl 500 mg p.o. every 8 hours for 14 days minus whatever the number of days the patient is receiving treatment here in the hospital. 2. The patient's main comorbidity is that she has end-stage renal disease and is on dialysis. I am signing off for now. However, I am available to see the patient on a p.r.n. basis. cc: Emery Charles MD MTDD
[2017-04-04] MEDS ORDERED: TIGHT: 0.2 ML/HR MISC PRN (05:36)
[2017-04-04] MEDS ORDERED: HEPARIN IV PRN (05:36)
[2017-04-04] MEDS ORDERED: NS 2,000 ML MISC PRN (05:36)
[2017-04-04] MEDS: VANCOCIN PO SCH ×3 (05:52→14:28)
[2017-04-04] MEDS ORDERED: EPOGEN SUBQ ONE (06:19)
--- NOTE | 2017-04-04 06:44 | PROGRESS NOTE ---
DATE: 04/04/2017 SUBJECTIVE: She is sleeping and resting comfortably. No shortness of breath. OBJECTIVE: Vital Signs: Blood pressure 158/54, heart rate 54, respirations 17, afebrile. Intake and output are incomplete. General: On physical exam, no acute distress. Skin: Warm and dry. HEENT: Conjunctivae are pink. Neck: The neck veins are distended. Trachea is midline. Heart: Regular with systolic murmur present. Lungs: Equal breath sounds without crackles or wheezes. Abdomen: Soft, nontender. Bowel sounds present. Extremities: No edema, clubbing, or cyanosis. LABORATORY DATA: Pending. IMPRESSION AND PLAN: 1. End-stage kidney disease. She has physical exam evidence of volume expansion. She will have her routine dialysis today and target her outpatient dry weight. 2. Febrile illness. Fevers resolved. Blood cultures are negative. Stool positive for Clostridium difficile toxin. She is on oral vancomycin. 3. Anemia has been in target. We will dose with erythropoietin x1. 4. Hypertension, in target. No other changes. cc: Emerson Dumont MD
[2017-04-04 07:12] LABS: POTASSIUM 4.5 mmol/L (3.5-5.1)
[2017-04-04 08:05] VITALS: BP 168/58
[2017-04-04] MEDS: HUMALOG SUBQ SCH ×2 (08:05→14:27)
[2017-04-04] MEDS: HEPARIN SUBQ SCH (08:25)
[2017-04-04] MEDS: ISORDIL PO SCH ×2 (08:26→14:28)
[2017-04-04] MEDS: NEURONTIN PO SCH ×2 (08:26→14:28)
[2017-04-04] MEDS: ASPIRIN PO SCH (08:26)
[2017-04-04] MEDS: APRESOLINE PO SCH ×2 (08:26→14:28)
[2017-04-04] MEDS ORDERED: HEPARIN ONE (08:46)
[2017-04-04] MEDS ORDERED: NS 2,000 ML ONE (08:46)
--- NOTE | 2017-04-04 09:16 | PROGRESS NOTE ---
DATE: 04/03/2017 SUBJECTIVE: The patient reports feeling better with just one bowel movement today. Denies any abdominal pain, fever, or chills. OBJECTIVE: Vital Signs: Temperature 97.4 degrees, heart rate 57, respiratory rate 18, blood pressure 181/54. O2 saturation 100% on room air. General: This is a 77-year-old female, lying in bed in no acute distress. HEENT: Head is normocephalic and atraumatic. Anicteric sclerae and pale conjunctivae. Mucous membranes moist. Neck supple. No JVD noted. No carotid bruits. No lymphadenopathy. No thyromegaly. Cardiovascular: S1, S2 heard. No murmurs, gallops, or rubs. Regular rate and rhythm. Respiratory exam: Clear bilaterally to auscultation. No work of breathing or using accessory muscles. Abdomen soft and nondistended. Nontender to palpation, a little bit distended. Bowel sounds present, no organomegaly. 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 The patient also stage I left heel decubitus ulcer. Neurologic: Patient alert oriented x3. Able to move 4 extremities. LABORATORY DATA: White cell count 8.63, hemoglobin 10.9, hematocrit 33.6, platelets 159,000. BMP remarkable for creatinine of 4.8 and BUN 74. ASSESSMENT AND PLAN: 1. Clostridium difficile colitis infection. The patient was complaining of diarrhea for the previous days, like 5 or 6 today. We have ordered a Clostridium difficile infection workup and that returned positive for Clostridium difficile colitis. The vancomycin oral has been started yesterday and, today, she is feeling much better with just one bowel movement per day. We will continue with the same management. 2. End-stage renal disease on hemodialysis. Dr. Dumont is following this patient. 3. Suspected IV line infection. At this point, Dr. Charles from Infectious Disease is following this patient. We will see what he has to say. 4. Peripheral vascular disease, stable. cc: Gonzalo Malave MD
--- NOTE | 2017-04-04 16:26 | DISCHARGE SUMMARY ---
ADMISSION DATE: 04/02/2017 DISCHARGE DATE: 04/04/2017 CONSULTATIONS: 1. Dr. Emerson Dumont with Nephrology. 2. Dr. Emery Charles with Infectious Disease. PERTINENT PROCEDURES: Renal ultrasound showed bilateral increased renal cortical echotexture, which is a nonspecific indicator of medical renal disease. DISCHARGE DIAGNOSES: 1. Clostridium difficile colitis. The patient is on oral vancomycin and followed by Infectious Disease. 2. End-stage renal disease, followed by Dr. Dumont, continued on her outpatient routine dialysis. 3. Hypertension. Stable. 4. Anemia. Stable. 5. Peripheral vascular disease. Stable. HOSPITAL COURSE: Ms. Alvarez is a 77-year-old female with a past medical history of hypertension, coronary artery disease, type 2 diabetes complicated with end-stage renal disease, status post right BKA. She had started dialysis about a week ago. According to the family, she had been doing well up until dinner the day before her admission. They noticed she was unusually drowsy and sleepy. She was put to bed and slept for 3 hours. She had a temperature spike and she was brought to the ED to be evaluated. At that time, she denied nausea, vomiting, diarrhea, or cough. The patient was initially admitted to rule out any IV line infection. She was started on IV vancomycin. Blood cultures were obtained that have been negative. They did check stool cultures and they were positive for Clostridium difficile. Dr. Emery Charles was consulted and started the patient on p.o. vancomycin as well as a consult for Dr. Dumont to continue her regular scheduled dialysis. The patient is appropriate to be discharged home today, per . VITAL SIGNS: Temperature is 97.8 degrees, heart rate 56, respirations 18, blood pressure 168/58, and O2 is 98% on room air. DISCHARGE DIET: Diabetic. DISCHARGE MEDICATIONS: 1. Tylenol 650 mg p.o. q.6 hours p.r.n. 2. Neurontin 100 mg p.o. t.i.d. 3. Apresoline 25 mg p.o. t.i.d. 4. [place] 10/325 one p.o. q.6 hours p.r.n. 5. Isosorbide dinitrate 10 mg p.o. t.i.d. 6. Vancocin 125 mg p.o. q.6 hours. FOLLOWUP: Patient is being discharged home, where she will need to continue all her home antibiotics, continue on her regular scheduled dialysis, and follow up with her primary care physician, Dr. Perez. She also has [facility]. The patient can return to the ED for any worsening of symptoms. DISCHARGE TIME: Thirty minutes. Dictated by IGLESIA Dean for Gonzalo Malave MD cc: MD Anders Chavez MD
--- NOTE | 2017-04-19 00:07 | PROVIDER DOCUMENTATION ---
This chart was entered by Kristin Nolasco Scribe, acting as scribe for Nayan Carver MD. HPI-Fever - General Chief Complaint: Fever Stated Complaint: FEVER Time Seen by Provider: 04/01/17 23:48 Source: patient Allergies/Adverse Reactions: Patient Allergies Allergy/AdvReac Type Severity Reaction Status Date / Time No Known Allergies Allergy Verified 11/21/16 21:20 Home Medications: Home Medication List Medication Instructions Recorded Confirmed Last Taken Type Acetaminophen [Tylenol] 650 mg PO Q6H PRN PRN #0 tablet 03/21/17 Unknown Rx Gabapentin [Neurontin] 100 mg PO TID 04/01/17 04/01/17 04/01/17 19:30 History Hydralazine [Apresoline] 25 mg PO TID 04/01/17 04/01/17 04/01/17 19:00 History Hydrocodone/Acetaminophen [[place] 1 each PO Q6HR PRN 04/01/17 04/01/17 03/29/17 History 10-325 Tablet] Isosorbide Dinitrate 10 mg PO TID 04/01/17 04/01/17 04/01/17 19:30 History Vancomycin [Vancocin] 125 mg PO Q6HR #53 capsule 04/04/17 Unknown Rx - History of Present Illness-Fever Nature of Presenting Problem: 77 Y/O F presents to ED with Fever. Pt family states that Pt had an onset of fever since 5 this evening. Pt is on dialysis, fatigue, high fever, ABD pain. Pt denies all other symptoms. Pt has dialysis every 3 days ,, Saturday. Pt has a RT side BTK amputation. Fever Severity/Quality: reports: greater than 102 F Onset/Duration: reports: this evening Timing: reports: still present Context: reports: none Recent Illness?: reports: none Cognitive Baseline: alert, oriented x3 Associated Symptoms: reports: fatigue, fever/chills. denies: arm pain, chest pain, constipation, cough, sinus congestion/drainage, rash, shortness of breath , swelling/mass in abdomen, vomiting, trouble walking Similar Symptoms Previously?: No Review of Systems - Adult - REVIEW OF SYSTEMS - ADULT Constitutional: reports: chills, fever, fatique Eyes: reports: no symptoms reported Ears, Nose, Mouth & Throat: denies: ear pain, nose pain, mouth/dental pain, throat swelling Cardiovascular: denies: chest pain Respiratory: denies: chronic cough, cough, shortness of breath Gastrointestinal: denies: abdominal pain, diarrhea, nausea, vomiting Genitourinary: reports: no symptoms reported Musculoskeletal: denies: bone pain, back pain Integumentary: reports: no symptoms reported Neurological: denies: dizziness/vertigo, headache/migraines, numbness, paresthesia Psychiatric: reports: no symptoms reported Endocrine: reports: no symptoms reported Hematologic/Lymphatic: reports: no symptoms reported Allergic/Immunologic: reports: no symptoms reported All Other Systems: Reviewed and Negative Past History - Adult - PAST MEDICAL HISTORY-ADULT Review of Records: reports: Old Records Reviewed, Nursing Assessment Review, Medications Reviewed, Social history reviewed & non-contributory. Physical Exam-General - CONSTITUTIONAL General Appearance: alert, no apparent distress, lethargic - EYES Eyes: PERRL/EOMI, pink conjunctivae - HEAD, EARS, NOSE, MOUTH & THROAT HENMT: normocephalic/atraumatic, moist mucous membranes, normal ENT inspection, TMs normal, pharynx normal - NECK Neck: full range of motion, supple, normal inspection - RESPIRATORY Respiratory: lungs clear, normal breath sounds - CARDIOVASCULAR Cardiovascular: regular rate, rhythm - CHEST (BREASTS) Chest/Breast: other (PICC Line in right side chest) - GASTROINTESTINAL (ABDOMEN) Abdominal Exam: tenderness (to lower abd) - LYMPHATIC Lymphatic: no adenopathy - MUSCULOSKELETAL Back Exam: no CVA tenderness, no vertebral tenderness Extremity: other (blood blister on the left heel, BTK left side amputation) - SKIN Integumentary: normal turgor, warm/dry - NEUROLOGIC Neurologic: grossly normal - PSYCHIATRIC Psych/Mental Status: normal mood/affect, normal thought content, normal thought process, oriented x 3 Progress - PLAN OF CARE/RESULTS Progress/Plan/Lab Results: Orders Category Date Time Status Admit - [facility] Routine AdmDCTranf 04/02/17 04:48 Ordered Activity - Up with Assistance ORDERED Care 04/02/17 04:48 Active FSBS/Accucheck Result AC + HS Care 04/02/17 04:48 Active Intake and Output-Strict ORDERED Care 04/02/17 04:48 Active Nursing- MD Consult Request ROUTINE Care 04/02/17 04:48 Completed Vital Signs Order Q 8-HR ASSESS Care 04/02/17 04:48 Active Physician/Provider Consults Routine Cons 04/02/17 04:48 Ordered Physician/Provider Consults Routine Cons 04/02/17 04:48 Ordered Diabetic Diet Diet 04/02/17 02:24 Completed CHEST-2 VIEWS [RAD] Stat Exams 04/02/17 01:07 Completed BASIC METABOLIC PANEL [CHEM] Routine Lab 04/03/17 06:10 Completed BLOOD CULTURE [BLDCUL] Stat Lab 04/02/17 00:50 Completed CBC WITH DIFF [HEME] Routine Lab 04/03/17 06:10 Completed CBC WITH DIFF [HEME] Stat Lab 04/01/17 23:05 Completed COMPREHENSIVE METABOLIC PANEL [CHEM] Stat Lab 04/01/17 23:05 Completed GRAM STAIN [BLDCUL] Stat Lab 04/02/17 00:45 Completed LACTATE, PLASMA [CHEM] Stat Lab 04/02/17 00:50 Completed URINALYSIS W/POSS RFLX CULT [URINALYSIS] Stat Lab 04/01/17 23:13 Completed URINE CULTURE [RM] Routine Lab 04/02/17 02:00 Completed URINE MANUAL MICROSCOPIC [URINALYSIS] Stat Lab 04/01/17 23:13 Completed Acetaminophen [Tylenol] Med 04/01/17 23:50 Discontinued 650 mg PO NOW ONE Acetaminophen [Tylenol] Med 04/02/17 04:48 Discontinued 650 mg PO Q6H PRN PRN Aspirin Med 04/02/17 09:00 Discontinued 81 mg PO DAILY Gabapentin [Neurontin] Med 04/02/17 09:00 Discontinued 100 mg PO TID Heparin Med 04/02/17 09:00 Discontinued 5,000 unit SUBQ Q12HR Hydralazine [Apresoline] Med 04/02/17 09:00 Discontinued 25 mg PO TID Hydrocodone/APAP 10 mg/325 mg [[place]-10] Med 04/02/17 04:48 Discontinued 1 each PO Q6H PRN PRN Insulin Lispro [Humalog] Med 04/02/17 04:48 Discontinued See Protocol SUBQ Q6H Isosorbide Dinitrate [Isordil] Med 04/02/17 09:00 Discontinued 10 mg PO TID Ondansetron [Zofran] Med 04/02/17 04:48 Discontinued 4 mg IV Q4H PRN PRN Vancomycin 1 gm/Ns Med 04/02/17 02:03 Discontinued 1 gm in 250 ml IV NOW Transfer/Admit Order [TRANSFER] Routine Transfer 04/02/17 02:23 Completed Result Diagrams: 04/03/17 06:10 04/04/17 06:20 - CONSULTS/PCP/HOSPITALIST Notification #1 *Consult/PCP/Hospitalist*: Time Discussed: 02:04 Reason/Comments: Admit Consult Disposition: Admit (Admit Accepted) Departure - Departure Date of Disposition Decision: 04/02/17 Time of Disposition Decision: 02:00 DIAGNOSIS: Febrile illness, ESRD (end stage renal disease) on dialysis Disposition: ADMITTED INPATIENT 09 Certified Medical Emergency: Emergent Condition: Stable - Critical Care Note This patient required my direct & personal management of CC.: No This chart was documented by the indicated scribe, (Kristin Nolasco Scribe) and accurately reflects the services I performed and decisions made by me, Nayan Carver MD, as attested by the provider's signature.
== END 2017-04-04 15:52 | disposition home health service (06) ==
LOC: ED 22:48 → MERGE 04-02 04:40 → SUATTDRO 04-02 04:40 → EDUNIT# 04-02 04:40 → EDIPHOLD 04-02 04:40 → 3N 04-02 08:19
PROVIDERS: ATTEND Internal Medicine